=== PATIENT | female | born 1990 | race Caucasian/White ===

== ENCOUNTER 2023-10-02 08:43 | Emergency (ER) | payer MEDICARE, OTHER, SELFPAY ==
[2023-10-02] VITALS (10 sets, daily range): BP systolic 89–146; BP diastolic 65–119; BMI 34.1
--- NOTE | 2023-10-02 09:02 | ED.GENMED ---
History of Present Illness
General
Chief Complaint: Breathing Problem
Source: records
Exam Limitations: clinical condition
Time Seen by Provider: 10/02/23 08:49
Travel History
Have you had any contact with someone who has COVID-19?: No
Do you have any symptoms of coronavirus? Fever > 100 degrees, chills, cough, shortness of breath, sore throat, loss of taste or smell, muscle aches, or headache?: Yes
Symptoms:: SOB
History of Present Illness
History of Present Illness:
Patient apparently was sent for blood pressure issues. Unsure whether this was hyper or hypotension. Low pulse oxes and some dizziness and paleness. Uncertain time course or etiology. Patient only complains of bilateral foot pain. This has been
going on. Denies shortness of breath cough fever.
Past History
Past History
ED Past Medical History: HTN, IDDM, Seizures, Hypothyroidism, Psychiatric (Bipolar, Anxiety, Depression) and Other (DVT, hydrocephalus, Neuralgia, Post Traumatic seizure, C-diff, brain tumor, diabetes insipidus)
ED Past Surgical History: Other (Craniotomy, [employer] shunt)
Social History
Tobacco: Non-smoker
Alcohol: None
Personal: Single
Living: other (nursing home)
Employment: Disabled
Family History
Family History: Unable to obtain
Review of Systems
Review of Systems
All Other Systems: Not applicable
Constitutional: Denies fever
Cardiac: Reports no symptoms
ABD/GI: Reports no symptoms
Phy Exam
Physical Exam
Physical Exam:
GENERAL: Alert and oriented. Delayed. At times she is mildly sleepy and lethargic but will fully awaken and answer questions appropriately.
EYE: Orbits normal.
NECK: Supple, no significant adenopathy.
ENT: Pharynx without erythema
CARDIAC: Regular rate and rhythm without any obvious murmurs.
LUNGS: Clear breath sounds,normal
ABDOMEN: Soft, without focal tenderness or distention
NEUROLOGICAL: Alert and oriented , grossly non-focal. Delayed
SKIN: Warm and dry, no rash or lesion, no discoloration, skin intact.
MUSCULOSKELETAL: No edema,no deformity.Good color
PSYCH: Normal and appropriate interaction.
Course
Orders/Labs/Results
Orders:
Orders
10/02/23 09:00
CT Head W/o Iv Contrast Urgent
Comment:
Reason For Exam: change in ms
Cardiac Monitoring- Treatment ONCE
IV Insert/Care/Rem.- Treatment PRN
Pulse Ox/cont/shift [RESP] Stat
Quantity: 1
10/02/23 09:01
Electrocardiogram (*1) Stat
Reason for Study: Other
Other Reason for Exam: pneumonia
EKG- Treatment ONCE
CR Chest - 2 Views Urgent
Comment:
Reason For Exam: hypoxia
10/02/23 09:04
COVID-19 Antigen Urgent
Source: Nasal Swab
Complete Blood Count/With Diff Urgent
Influenza A+B Rapid Molecular Urgent
ALIDA Source: Nasal Swab
Specimen Description:
10/02/23 09:57
Comprehensive Metabolic Panel Routine
10/02/23 10:01
Straight cath- Treatment ONCE
10/02/23 10:18
Urinalysis Reflex To Culture Urgent
Date Specimen was Collected: 10/02/23
Time Specimen was Collected: 10:17
Urine Microscopic Reflex Cult Urgent
Urine Culture Urgent
ALIDA Source: U
Specimen Description:
Date Specimen was Collected: 10/02/23
Time Specimen was Collected: 10:17
10/02/23 12:44
CefTRIAXone [Rocephin] 1,000 mg IV NOW STA
Abnormal Lab Results
10/02/23 10/02/23 10/02/23
09:04 09:57 10:18
RBC 3.02 L 10^6/uL
(4.20-5.40)
Hgb 9.2 L g/dL
(12.0-16.0)
Hct 29.7 L %
(37.0-47.0)
MCHC 31.0 L g/dL
(33.0-37.0)
RDW 18.5 H %
(11.5-14.5)
Abs Immat Gran (auto) 0.1 H 10^3/uL
(0-0.05)
Absolute Neuts (auto) 7.2 H 10^3/uL
(1.4-6.5)
Absolute Monos (auto) 0.7 H 10^3/uL
(0.1-0.6)
Absolute Eos (auto) 0.8 H 10^3/uL
(0-0.7)
Immature Gran % 0.7 H %
(0-0.5)
Lymphocytes % 13.3 L %
(20.5-51.1)
Eosinophils % 7.5 H %
(0-6)
Sodium 148 H mmol/L
(135-145)
Chloride 113 H mmol/L
(98-107)
BUN 18 H mg/dl
(7-17)
Creatinine 1.3 H mg/dL
(0.6-1.0)
Glucose 111 H mg/dl
(70-99)
AST 12 L U/L
(14-36)
Ur Occult Blood Reflex 4+ A
(Negative)
Urine Nitrite (Reflex) Positive A
(Negative)
Leukocyte Esterase Rfl 2+ A
(Negative)
Urine RBC 7-10 A /HPF
(0-2)
Urine WBC (Reflex) 60-70 A /HPF
(0-5)
Urine Bacteria (Reflex) Many A
(Negative)
Urine Albumin (Reflex) 1+ A
(Neg - Trace)
10/02/23 09:04
10/02/23 09:57
Vital Signs
Initial and Last Documented VS:
Initial Vital Signs
Pulse Resp BP Pulse Ox
89 15 91/72 94
10/02/23 08:47 10/02/23 08:47 10/02/23 08:47 10/02/23 08:47
Last Documented Vital Signs
Temp Pulse Resp BP Pulse Ox
98.9 F 62 20 101/68 95
10/02/23 08:48 10/02/23 11:45 10/02/23 11:45 10/02/23 11:00 10/02/23 11:45
*Radiology
Radiology exam reviewed: radiology read reviewed (No acute findings on head CT. Chest x-ray negative)
*Pulse Oximetry
Patient hypoxic: no
*EKG
Interpreted by ED Provider?: Yes
Interpretation: abnormal
Comparison EKG: changes noted
Heart Rate: 78
Rate: normal
Rhythm: sinus
[place]: left axis deviation
Interval: normal interval
QRS Pattern: right bundle branch block
Ischemia: non-specific ST changes
*[employer] Interpretation
Rate: normal
Interpretation: normal
Heart Rate: 80
Rhythm: sinus
*Critical Care Note
Total Time (30-74mins, 75-104mins- exclusive of procedures): Not Applicable
Data Reviewed
Review of Other/Old Records Reveals: Labs, Records and Radiology Studies
Update Note
Update Note:
919... Discussed with patient's nurse at the facility. They noticed a difference this morning. Seemed pale a little sleepier than normal and weaker than normal. Hypoxic at times. Only complaining of bilateral leg pain which she apparently does
intermittently. No new medications.
Patient is remained stable and nontoxic........1350.... No distress. Watching a movie. Pulse ox remained stable. Positive UTI. Can be treated as an outpatient. Discharged to follow-up
ED Attending Note
-
Portions of this chart may have been created with voice recognition software.� Occasional wrong word or��sound alike� substitutions may have occurred due to the inherent limitations of voice recognition software.
Discharge Plan
Departure
Patient Disposition: Home (Routine Discharge)
Date of Disposition: 10/02/23
Time of Disposition: 13:51
Patient with high blood pressure during this ER visit?: No
Discharge Problem:
UTI, Weakness
Instructions: Urinary tract infections in adults, Generalized Weakness (DC)
Prescriptions:
New
cefdinir 300 mg capsule
300 mg PO BID 14 Days Qty: 14 0RF
No Action
levetiracetam 500 MG tablet
1,000 mg PO BID@0800,2000
prednisone 5 MG tablet
5 mg PO DAILY
gabapentin 300 MG capsule
300 mg PO TID@0800,1300,1999
oxybutynin chloride 5 MG tablet
5 mg PO BID@0800,1999
cholecalciferol (vitamin D3) 1,000 UNITS tablet
1,000 units PO DAILY
magnesium oxide 400 MG capsule
400 mg PO QID
riboflavin (vitamin B2) 400 MG tablet
400 mg PO DAILY
acetaminophen 325 MG tablet
650 mg PO Q4HPRN PRN (Reason: mild pain,fever)
loperamide 2 MG capsule
2 mg PO DAILY PRN (Reason: diarrhea )
metformin 500 mg tablet
1,000 mg PO BID@0800,1700
atorvastatin 20 mg tablet
20 mg PO HS
trazodone 50 mg tablet
50 mg PO HS
miconazole nitrate 2 % Cream
1 applic TOPICAL DAILY
famotidine 40 mg Tablet
40 mg PO HS
Metamucil Packet
1 packet PO DAILY PRN (Reason: constipation )
desmopressin 0.2 mg tablet
0.2 mg PO BID
sertraline 100 mg tablet
100 mg PO DAILY
midodrine 5 mg tablet
5 mg PO TID@0800,1300,1700 MDD hold if BP>135/70
cyanocobalamin (vitamin B-12) [Vitamin B-12] 1,000 mcg tablet
1,000 mcg PO DAILY
bacitracin 500 unit/gram ointment
1 applic TOPICAL BID
levothyroxine 100 mcg tablet
100 mcg PO DAILY@0700
tamsulosin 0.4 mg capsule
0.4 mg PO QPM
docusate sodium 100 mg Capsule
100 mg PO Q12H PRN (Reason: constipation )
folic acid 1 mg tablet
1 mg PO DAILY
nystatin [Nyamyc] 100,000 unit/gram powder
1 applic TOPICAL TID PRN (Reason: affected areas as needed for rash )
ondansetron 4 mg tablet,disintegrating
4 mg PO Q8H PRN (Reason: nausea/vomiting )
risperidone 1 mg tablet
1 mg PO HS
trolamine salicylate [Aspercreme] 10 % Cream
1 applic TOPICAL BID
buspirone 15 mg tablet
7.5 mg PO BID@0800,1999
zinc oxide Ointment
1 applic TOPICAL TID@0800,1200,1700
ferrous gluconate 324 mg (38 mg iron) tablet
324 mg PO BID@0800,1700
omega 3-umm-knu-fish oil [Fish Oil] 1,000 mg (120 mg-180 mg) Capsule
1 cap PO TID@0800,1300,1999
Azo Cranberry Plus Probiotic 250-30-15 mg Tablet
1 tab PO DAILY
Coppertone
1 applic topical PRN PRN (Reason: sunscreen )
lorazepam 0.5 MG tablet
0.5 mg PO Q8HPRN PRN (Reason: anxiety)
dextromethorphan-guaifenesin [Guaifenesin-DM] 10-100 mg/5 mL Liquid
10 ml PO Q4H PRN (Reason: cough)
Referrals:
UNKNOWN,NO INTERVIEW [Family Provider] -
Activity Restrictions/Additional Instructions:
Start the oral antibiotics tomorrow
Follow-up closely with her primary physician in 1 to 2 days
Interventions
Interventions:
*Risk Screen - Suicide Last Done: 10/02/23 08:48
*General Assessment Last Done: 10/02/23 08:48
*Neglect/Abuse Screening Last Done: 10/02/23 08:48
*ED COVID-19 Vaccine History Last Done: 10/02/23 09:00
ED- Cardiac Assessment Last Done: 10/02/23 09:22
ED- Pulmonary Assessment Last Done: 10/02/23 09:22
[2023-10-02 09:34] LABS: % Basophils 0.7 % (0-2); % Eosinophils 7.5 % (0-6); % Immature Granulocytes 0.7 % (0-0.5); % Lymphocytes 13.3 % (20.5-51.1); % Monocytes 7.1 % (1.7-9.3); % Neutrophils 70.7 % (42.2-75.2); Absolute Basophils 0.1 10^3/uL (0-0.2); Absolute Eosinophils 0.8 10^3/uL (0-0.7); Absolute Immature Granulocytes 0.1 10^3/uL (0-0.05); Absolute Lymphocytes 1.4 10^3/uL (1.2-3.4); Absolute Monocytes 0.7 10^3/uL (0.1-0.6); Absolute Neutrophils 7.2 10^3/uL (1.4-6.5); Hematocrit 29.7 % (37.0-47.0); Hemoglobin 9.2 g/dL (12.0-16.0); Mean Corpuscular Hgb 30.5 pg (27.0-31.0); Mean Corpuscular Volume 98.3 fL (81.0-99.0); Nucleated Red Blood Cells % 0 %; Red Blood Cell Count 3.02 10^6/uL (4.20-5.40); Red Cell Dist. Width 18.5 % (11.5-14.5); White Blood Cell Count 10.2 10^3/uL (4.8-10.8)
[2023-10-02 09:56] LABS: COVID-19 Antigen Negative (Negative)
[2023-10-02 10:22] LABS: ALT (SGPT) 13 U/L (0-35); AST (SGOT) 12 U/L (14-36); Albumin 3.7 g/dl (3.5-5.0); Alkaline Phosphatase 58 U/L (38-126); Blood Urea Nitrogen 18 mg/dl (7-17); Calcium 8.8 mg/dl (8.4-10.2); Carbon Dioxide 29 mmol/L (22-30); Chloride 113 mmol/L (98-107); Estimated Creatinine Clearance 73 ml/min; Glucose 111 mg/dl (70-99); Potassium 4.1 mmol/L (3.5-5.1); Sodium 148 mmol/L (135-145); Total Bilirubin 0.7 mg/dl (0.2-1.3); Total Protein 6.9 g/dl (6.3-8.2); eGFR 56.38
[2023-10-02 10:25] LABS: Urine Albumin 1+ (Neg - Trace); Urine Bilirubin Negative (Negative); Urine Character Clear (Clear); Urine Color Yellow; Urine Glucose Negative (Negative); Urine Ketone Negative (Negative); Urine Leukocyte 2+ (Negative); Urine Nitrite Positive (Negative); Urine Occult Blood 4+ (Negative); Urine Urobilinogen Negative (Neg - 1+)
[2023-10-02 10:48] LABS: Urine Mucus Few
[2023-10-02 10:49] LABS: Urine Amorphous Seen; Urine Squamous Cell 0-2 /LPF (Few)
[2023-10-02 10:50] LABS: Urine Bacteria Many (Negative); Urine White Cell 60-70 /HPF (0-5)
[2023-10-02] MEDS: ROCEPHIN 1000 MG IV (13:10)
== END 2023-10-02 16:15 | disposition home or self-care (01) ==
LOC: EMR 08:43
PROVIDERS: EMERGENCY PHYSICIAN Emergency Medicine
DX: N39.0 Urinary tract infection, site not specified (principal); R53.1 Weakness; M79.605 Pain in left leg; M79.604 Pain in right leg; Z11.52 Encounter for screening for COVID-19
CPT/HCPCS: 99285; 96374; 51701; 70450; 71046; 80053; 81003; 81015; 85025; 87086; 87502; 87811; 93005

== ENCOUNTER 2024-08-21 22:13 | Inpatient (IN) | payer MEDICARE, OTHER, SELFPAY ==
[2024-08-21] VITALS (11 sets, daily range): BP systolic 97–117; BP diastolic 63–72; BMI 36.5
[2024-08-21 12:54] LABS: % Basophils 0.5 % (0-2); % Eosinophils 0.3 % (0-6); % Immature Granulocytes 1.1 % (0-0.5); % Lymphocytes 10.5 % (20.5-51.1); % Monocytes 8.6 % (1.7-9.3); Absolute Immature Granulocytes 0.1 10^3/uL (0-0.05); Absolute Lymphocytes 0.7 10^3/uL (1.2-3.4); Absolute Monocytes 0.6 10^3/uL (0.1-0.6); Absolute Neutrophils 5.3 10^3/uL (1.4-6.5); Hematocrit 33.1 % (37.0-47.0); Hemoglobin 10.1 g/dL (12.0-16.0); Mean Corp Hgb Conc. 30.5 g/dL (33.0-37.0); Mean Corpuscular Hgb 31.1 pg (27.0-31.0); Mean Corpuscular Volume 101.8 fL (81.0-99.0); Mean Platelet Volume 10.3 fL (7.4-10.4); Nucleated Red Blood Cells % 0 %; Platelet Count 238 10^3/uL (130-400); Red Blood Cell Count 3.25 10^6/uL (4.20-5.40); Red Cell Dist. Width 16.8 % (11.5-14.5); White Blood Cell Count 6.6 10^3/uL (4.8-10.8)
[2024-08-21 13:05] LABS: HCG, Serum Qualitative Screen Negative
[2024-08-21 13:09] LABS: ALT (SGPT) 18 U/L (0-35); AST (SGOT) 20 U/L (14-36); Albumin 4.5 g/dl (3.5-5.0); Alkaline Phosphatase 63 U/L (38-126); Blood Urea Nitrogen 26 mg/dl (7-17); Calcium 9.4 mg/dl (8.4-10.2); Carbon Dioxide 22 mmol/L (22-30); Chloride 111 mmol/L (98-107); Glucose 123 mg/dl (70-99); Potassium 4.8 mmol/L (3.5-5.1); Sodium 150 mmol/L (135-145); Total Bilirubin 0.6 mg/dl (0.2-1.3); Total Protein 7.9 g/dl (6.3-8.2); eGFR 43.67
[2024-08-21 13:20] LABS: Troponin I < 0.012 ng/ml
--- NOTE | 2024-08-21 14:39 | ED.GENMED ---
History of Present Illness
<SHAYLA Thornton - Last Filed: 08/22/24 10:47>
General
Chief Complaint: Chest Pain
Exam Limitations: none
Time Seen by Provider: 08/21/24 14:12
Nursing documentation reviewed up to this point in time: agreed with
History of Present Illness
History of Present Illness:
33 yr old [facility] presents to the ED for chest pain. Patient has documented history of hydrocephalus brain tumor, bipolar anxiety craniotomy recent kidney stone with stent.
Pt as per staff at [facility] sent for evaluation of chest pain.
Staff also reports pt is more tired then normal.
Staff reports pt recently hospitalized at [facility](for what she believes was kidney stones with) and from [place] was sent to rehab and came back to residential facility the beginning of August.
Transfer paperwork does mention ureter calculus.
Staff reports pt has b/l stents that need to be replaced.
Nurse reports pt is scheduled to see [facility] urology for b/l stent exchange 2/3.Pt is also a patient of [facility] in [place], [place]/
Past History
<SHAYLA Thornton - Last Filed: 08/22/24 10:47>
Past History
ED Past Medical History: HTN, IDDM, Seizures, Hypothyroidism, Psychiatric (Bipolar, Anxiety, Depression) and Other (DVT, hydrocephalus, Neuralgia, Post Traumatic seizure, C-diff, brain tumor, diabetes insipidus)
ED Past Surgical History: Other (Craniotomy, RETAIL EVENT COORDINATOR shunt)
Social History
Tobacco: Non-smoker
Alcohol: None
Personal: Single
Living: other (jail)
Employment: Disabled
Family History
Family History: Unable to obtain
Review of Systems
<SHAYLA Thornton - Last Filed: 08/22/24 10:47>
Review of Systems
Allergies reviewed?: Yes
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
Constitutional: Reports other (pt more tired than normal )
EENT: Reports no symptoms
Respiratory: Reports no symptoms
Cardiac: Reports chest pain (pt had complained of cp for staff at residential facilty denies now )
ABD/GI: Reports no symptoms
: Reports no symptoms
Musculoskeletal: Reports no symptoms
Skin: Reports no symptoms
Neurological: Reports other (more tired than nml )
Psychiatric: Reports no symptoms
Phy Exam
<SHAYLA Thornton - Last Filed: 08/22/24 10:47>
General Physical Exam
General Presentation: no apparent distress
General age: appears older than age
General Skin: warm and dry
General Habitus: normal
General Mental: other (appears sleepy however will open eyes and answer questions )
General Hydration: dry mucous membranes
Cardiovascular Exam
Cardiovascular Exam: regular rate/rhythm, no murmur and normal peripheral pulses
Pulmonary Exam
Pulmonary Exam: lungs clear and no respiratory distress
Neurological Exam
Neurological Exam: other (pt is able to state name, attempts to follow commands )
Musculoskeletal Exam
Musculoskeletal Exam: full ROM and other (+ area of erythema to right calf region )
Skin Exam
Skin Exam: normal color and warm/dry
Psychiatric Exam
Psychiatric Exam: normal mood/affect
Scores
<SHAYLA Thornton - Last Filed: 08/22/24 10:47>
Heart Score for Chest Pain Patients
STEMI patient?: Not applicable
Course
<SHAYLA Thornton - Last Filed: 08/22/24 10:47>
Orders/Labs/Results
Orders:
Orders
08/21/24 Breakfast
Regular
At Your Request: Limited Participation
08/21/24 12:09
ECG [Electrocardiogram (*1)] Urgent
Reason for Study: Chest Pain
EKG- Treatment ONCE
08/21/24 12:18
Test Result ONCE
08/21/24 12:41
Complete Blood Count/With Diff Urgent
Comprehensive Metabolic Panel Urgent
HCG, Serum Qualitative Screen Urgent
Troponin I Urgent
08/21/24 16:10
Chest [CR Chest - 2 Views ] Urgent
Comment:
Reason For Exam: cp
08/21/24 16:17
Straight cath- Treatment ONCE
08/21/24 16:35
0.9% Sodium Chloride 1000 ml [Nss] 1,000 ml IV BOLUS
08/21/24 16:46
UA Reflex to Culture [Urinalysis Reflex To Culture] Urgent
Date Specimen was Collected: 08/21/24
Time Specimen was Collected: 16:38
Urine Microscopic Reflex Cult Urgent
Urine Culture Urgent
ALIDA Source: U
Specimen Description:
Date Specimen was Collected: 08/21/24
Time Specimen was Collected: 16:38
08/21/24 16:48
Troponin I Urgent
08/21/24 16:51
CT Head W/o Iv Contrast Urgent
Comment:
Reason For Exam: change in ms
08/21/24 17:47
CefTRIAXone [Rocephin] 1,000 mg IV NOW STA
08/21/24 17:50
CT Abd/pel Without Iv Or Oral Urgent
Comment:
Reason For Exam: UTI w/ known stents
08/21/24 17:52
Sterile Water [Sterile Water For Injection] 10 ml IV NOW STA
08/21/24 17:55
Flush (0.9% Sodium Chloride) [Flush (Nss)] See Dose Instructions IV BID@1755,1805
08/21/24 18:00
Lactated Ringers [Lr] 1,000 ml IV 1,000 mls/hr
08/21/24 18:09
Venous Blood Gas Urgent
%Oxygen/Room Air: 21
08/21/24 18:11
Lactic Acid Q4H
Comment: CANCEL 2nd LACTIC ACID IF 1st LACTIC ACID IS LESS THAN 2
08/21/24 18:12
Blood Culture Q30M
ALIDA Source: Blood/Venous
Specimen Description:
Blood Culture Q30M
ALIDA Source: Blood/Venous
Specimen Description:
08/21/24 18:58
0.9% Sodium Chloride 1000 ml [Nss] 1,000 ml IV BOLUS
08/21/24 21:01
Admit/Transfer Patient As Directed
Co-Sign Provider:
Level of Care: Inpatient admission
Assign to:: Telemetry
Physician / Group: Nakul
Diagnosis: Acute TME, Dehydration
Reason for Telemetry: Arrhythmia
Date to Stop Telemetry: 08/24/24
Time to Stop Telemetry: 11:00
Reason for Hospitalization: Acute TME, Dehydration
Expected length of stay greater than two midnights?: Yes
ELOS- Estimated Length of Stay in days: 3
I certify the patient meets the requirements for IP care: Yes
PRN Pain Medication Management As Directed
May give lesser potent ordered pain med per pt: Yes
preference::
Protocol:: Medication orders for pain may be administered in a
manner that supports deferring to patient preference
when the pt is:
- Requesting an ordered lesser potent pain medication.
Least to most potent pain medications are defined
as: acetaminophen < NSAID < tramadol < opioids
(morphine, oxycodone, hydromorphone).
- Requesting a lesser dose of the same medication IF
ORDERED.
- Requesting a less intrusive route of administration
if both routes are prescribed by the provider (PO <
IV).
08/21/24 21:06
Code Status As Directed
Resuscitation Status: Full Code
08/21/24 21:08
COVID-19 Antigen Urgent
Source: Nasal Swab
Influenza A+B Rapid Molecular Urgent
ALIDA Source: Nasal Swab
Specimen Description:
08/21/24 22:00
Flush (0.9% Sodium Chloride) [Flush (Nss)] See Dose Instructions IV PER PROTOCOL
08/21/24 22:15
Lactic Acid Q4H
Comment: CANCEL 2nd LACTIC ACID IF 1st LACTIC ACID IS LESS THAN 2
08/21/24 22:44
Troponin I Q6H
0.45% Sodium Chloride 1000 ml [0.45%NaCl] 1,000 ml IV 125 mls/hr
Acetaminophen [Tylenol] 650 mg PO Q4HPRN PRN
Atorvastatin [Lipitor] 20 mg PO HS
Dextrose 50%-Water [Dextrose 50% Syringe] 12.5 grams IV [id number] PRN
Famotidine [Pepcid] 40 mg PO HS
Glucagon [GlucaGen] 1 mg IM PRN PRN
Risperidone [Risperdal] 0.5 mg PO HS
Trazodone [Desyrel] 50 mg PO HS
08/21/24 22:44
Neurosurgery Consult Routine
Consulting Provider: Karma Mercer
Was physician already notified: Yes
Reason for Consult: Intracranial collections, RETAIL EVENT COORDINATOR shunt, hydrocephalus, acute TME
UROLOGY CONSULT Routine
Consulting Provider: Yuri Mccall
Was physician already notified: Yes
Comment: b/l ureteral stents, possible UTI
B12 [Vitamin B12] Routine
Folate Routine
TSH Reflex To Free T4 Routine
Activity As Directed
Activity Level: Ambulate
With Assistance
Bedside Glucose Monitoring As Directed
Frequency: AC&HS
Additional Instructions:: Change to q6h if pt on TPN, tube feeding or not eating
EKG with chest pain [ECG as needed] As Directed
ECG as needed for:: Chest Pain
I/O [Intake/ Output] As Directed
Frequency: Per unit guidelines
Neurological Checks As Directed
Frequency: q4h
Pneumatic Compression Sleeves As Directed
Type: Knee high
Precautions As Directed
Type of Precautions: Seizure
Aspiration
Vital Signs As Directed
Frequency: Per unit guidelines
Weight As Directed
Frequency: Daily
Oxygen Therapy [O2 Therapy] [RESP] Routine
Titrate/Wean O2 to maintain O2 sat greater than (%): 94
Ot Eval And Treat Routine
PT Consult [Pt Eval And Treat] Routine
Activity Level: Ambulate
With Assistance
Speech Therapy Eval & Treat Routine
DX Deep Vein Thrombosis Video Routine
08/22/24 06:11
Basic Metabolic Panel IN AM
Complete Blood Count/No Diff IN AM
Glycohemoglobin (HgbA1c) IN AM
Magnesium IN AM
Phosphorus IN AM
Troponin I Q6H
08/22/24 07:00
Levothyroxine [Synthroid] 100 mcg PO DAILY@0700
08/22/24 07:30
Insulin Aspart Corrective Low [Novolog Flexpen-Low Resistance] See Protocol SC AC
08/22/24 08:00
Desmopressin [Ddavp] 0.1 mg PO BID
FOLic ACID [Folvite] 1 mg PO DAILY
Gabapentin [Neurontin] 300 mg PO TID@0800,1300,2000
Levetiracetam [Keppra] 1,000 mg PO BID
Midodrine [ProAmatine] 10 mg PO TID@0800,1300,1700
Prednisone [Deltasone] 5 mg PO DAILY
Sertraline HCl [Zoloft] 100 mg PO DAILY
08/22/24 18:00
CefTRIAXone [Rocephin] 1,000 mg IV Q24H
08/24/24 11:00
DC Protocol for Telemetry ONCE
Abnormal Lab Results
08/21/24 08/21/24 08/21/24
12:41 16:46 18:09
RBC 3.25 L 10^6/uL
(4.20-5.40)
Hgb 10.1 L g/dL
(12.0-16.0)
Hct 33.1 L %
(37.0-47.0)
MCV 101.8 H fL
(81.0-99.0)
MCH 31.1 H pg
(27.0-31.0)
MCHC 30.5 L g/dL
(33.0-37.0)
RDW 16.8 H %
(11.5-14.5)
Abs Immat Gran (auto) 0.1 H 10^3/uL
(0-0.05)
Absolute Lymphs (auto) 0.7 L 10^3/uL
(1.2-3.4)
Immature Gran % 1.1 H %
(0-0.5)
Neutrophils % 79.0 H %
(42.2-75.2)
Lymphocytes % 10.5 L %
(20.5-51.1)
VBG pO2 64 H mmHg
(30-50)
VBG HCO3 27.2 H mmol/L
(22-27)
Sodium 150 H mmol/L
(135-145)
Chloride 111 H mmol/L
(98-107)
BUN 26 H mg/dl
(7-17)
Creatinine 1.6 H mg/dL
(0.6-1.0)
Glucose 123 H mg/dl
(70-99)
Lactic Acid
Urine Ketones Trace A
(Negative)
Ur Occult Blood Reflex 4+ A
(Negative)
Urine Nitrite (Reflex) Positive A
(Negative)
Leukocyte Esterase Rfl 2+ A
(Negative)
Urine RBC 30-40 A /HPF
(0-2)
Urine WBC (Reflex) 80-90 A /HPF
(0-5)
Urine Bacteria (Reflex) Many A
(Negative)
Urine Albumin (Reflex) 3+ A
(Neg - Trace)
08/21/24
18:11
RBC
Hgb
Hct
MCV
MCH
MCHC
RDW
Abs Immat Gran (auto)
Absolute Lymphs (auto)
Immature Gran %
Neutrophils %
Lymphocytes %
VBG pO2
VBG HCO3
Sodium
Chloride
BUN
Creatinine
Glucose
Lactic Acid 2.5 H mmol/L
(0.7-2.0)
Urine Ketones
Ur Occult Blood Reflex
Urine Nitrite (Reflex)
Leukocyte Esterase Rfl
Urine RBC
Urine WBC (Reflex)
Urine Bacteria (Reflex)
Urine Albumin (Reflex)
08/21/24 12:41
08/21/24 12:41
Vital Signs
Initial and Last Documented VS:
Initial Vital Signs
Temp Pulse Resp BP Pulse Ox
98.2 F 100 16 100/68 98
08/21/24 12:15 08/21/24 12:15 08/21/24 12:15 08/21/24 12:15 08/21/24 12:15
Last Documented Vital Signs
Temp Pulse Resp BP Pulse Ox
97.7 F 68 18 118/76 97
08/22/24 07:05 08/22/24 07:05 08/22/24 07:05 08/22/24 07:05 08/22/24 07:05
Practice Performance Manager consulted with Physician
Practice Performance Manager consulted with physician?: Yes
Name of Physician Consulted: Alfonso
<Abhishek Coppola, DO - Last Filed: 08/21/24 20:28>
Orders/Labs/Results
Orders:
Orders
08/21/24 Breakfast
Regular
At Your Request: Limited Participation
08/21/24 12:09
ECG [Electrocardiogram (*1)] Urgent
Reason for Study: Chest Pain
EKG- Treatment ONCE
08/21/24 12:18
Test Result ONCE
08/21/24 12:41
Complete Blood Count/With Diff Urgent
Comprehensive Metabolic Panel Urgent
HCG, Serum Qualitative Screen Urgent
Troponin I Urgent
08/21/24 16:10
Chest [CR Chest - 2 Views ] Urgent
Comment:
Reason For Exam: cp
08/21/24 16:17
Straight cath- Treatment ONCE
08/21/24 16:35
0.9% Sodium Chloride 1000 ml [Nss] 1,000 ml IV BOLUS
08/21/24 16:46
UA Reflex to Culture [Urinalysis Reflex To Culture] Urgent
Date Specimen was Collected: 08/21/24
Time Specimen was Collected: 16:38
Urine Microscopic Reflex Cult Urgent
Urine Culture Urgent
ALIDA Source: U
Specimen Description:
Date Specimen was Collected: 08/21/24
Time Specimen was Collected: 16:38
08/21/24 16:48
Troponin I Urgent
08/21/24 16:51
CT Head W/o Iv Contrast Urgent
Comment:
Reason For Exam: change in ms
08/21/24 17:47
CefTRIAXone [Rocephin] 1,000 mg IV NOW STA
08/21/24 17:50
CT Abd/pel Without Iv Or Oral Urgent
Comment:
Reason For Exam: UTI w/ known stents
08/21/24 17:52
Sterile Water [Sterile Water For Injection] 10 ml IV NOW STA
08/21/24 17:55
Flush (0.9% Sodium Chloride) [Flush (Nss)] See Dose Instructions IV BID@1755,1805
08/21/24 18:00
Lactated Ringers [Lr] 1,000 ml IV 1,000 mls/hr
08/21/24 18:09
Venous Blood Gas Urgent
%Oxygen/Room Air: 21
08/21/24 18:11
Lactic Acid Q4H
Comment: CANCEL 2nd LACTIC ACID IF 1st LACTIC ACID IS LESS THAN 2
08/21/24 18:12
Blood Culture Q30M
ALIDA Source: Blood/Venous
Specimen Description:
Blood Culture Q30M
ALIDA Source: Blood/Venous
Specimen Description:
08/21/24 18:58
0.9% Sodium Chloride 1000 ml [Nss] 1,000 ml IV BOLUS
08/21/24 21:01
Admit/Transfer Patient As Directed
Co-Sign Provider:
Level of Care: Inpatient admission
Assign to:: Telemetry
Physician / Group: Nakul
Diagnosis: Acute TME, Dehydration
Reason for Telemetry: Arrhythmia
Date to Stop Telemetry: 08/24/24
Time to Stop Telemetry: 11:00
Reason for Hospitalization: Acute TME, Dehydration
Expected length of stay greater than two midnights?: Yes
ELOS- Estimated Length of Stay in days: 3
I certify the patient meets the requirements for IP care: Yes
PRN Pain Medication Management As Directed
May give lesser potent ordered pain med per pt: Yes
preference::
Protocol:: Medication orders for pain may be administered in a
manner that supports deferring to patient preference
when the pt is:
- Requesting an ordered lesser potent pain medication.
Least to most potent pain medications are defined
as: acetaminophen < NSAID < tramadol < opioids
(morphine, oxycodone, hydromorphone).
- Requesting a lesser dose of the same medication IF
ORDERED.
- Requesting a less intrusive route of administration
if both routes are prescribed by the provider (PO <
IV).
08/21/24 21:06
Code Status As Directed
Resuscitation Status: Full Code
08/21/24 21:08
COVID-19 Antigen Urgent
Source: Nasal Swab
Influenza A+B Rapid Molecular Urgent
ALIDA Source: Nasal Swab
Specimen Description:
08/21/24 22:00
Flush (0.9% Sodium Chloride) [Flush (Nss)] See Dose Instructions IV PER PROTOCOL
08/21/24 22:15
Lactic Acid Q4H
Comment: CANCEL 2nd LACTIC ACID IF 1st LACTIC ACID IS LESS THAN 2
08/21/24 22:44
Troponin I Q6H
0.45% Sodium Chloride 1000 ml [0.45%NaCl] 1,000 ml IV 125 mls/hr
Acetaminophen [Tylenol] 650 mg PO Q4HPRN PRN
Atorvastatin [Lipitor] 20 mg PO HS
Dextrose 50%-Water [Dextrose 50% Syringe] 12.5 grams IV [id number] PRN
Famotidine [Pepcid] 40 mg PO HS
Glucagon [GlucaGen] 1 mg IM PRN PRN
Risperidone [Risperdal] 0.5 mg PO HS
Trazodone [Desyrel] 50 mg PO HS
08/21/24 22:44
Neurosurgery Consult Routine
Consulting Provider: Karma Mercer
Was physician already notified: Yes
Reason for Consult: Intracranial collections, RETAIL EVENT COORDINATOR shunt, hydrocephalus, acute TME
UROLOGY CONSULT Routine
Consulting Provider: Yuri Mccall
Was physician already notified: Yes
Comment: b/l ureteral stents, possible UTI
B12 [Vitamin B12] Routine
Folate Routine
TSH Reflex To Free T4 Routine
Activity As Directed
Activity Level: Ambulate
With Assistance
Bedside Glucose Monitoring As Directed
Frequency: AC&HS
Additional Instructions:: Change to q6h if pt on TPN, tube feeding or not eating
EKG with chest pain [ECG as needed] As Directed
ECG as needed for:: Chest Pain
I/O [Intake/ Output] As Directed
Frequency: Per unit guidelines
Neurological Checks As Directed
Frequency: q4h
Pneumatic Compression Sleeves As Directed
Type: Knee high
Precautions As Directed
Type of Precautions: Seizure
Aspiration
Vital Signs As Directed
Frequency: Per unit guidelines
Weight As Directed
Frequency: Daily
Oxygen Therapy [O2 Therapy] [RESP] Routine
Titrate/Wean O2 to maintain O2 sat greater than (%): 94
Ot Eval And Treat Routine
PT Consult [Pt Eval And Treat] Routine
Activity Level: Ambulate
With Assistance
Speech Therapy Eval & Treat Routine
DX Deep Vein Thrombosis Video Routine
08/22/24 06:11
Basic Metabolic Panel IN AM
Complete Blood Count/No Diff IN AM
Glycohemoglobin (HgbA1c) IN AM
Magnesium IN AM
Phosphorus IN AM
Troponin I Q6H
08/22/24 07:00
Levothyroxine [Synthroid] 100 mcg PO DAILY@0700
08/22/24 07:30
Insulin Aspart Corrective Low [Novolog Flexpen-Low Resistance] See Protocol SC AC
08/22/24 08:00
Desmopressin [Ddavp] 0.1 mg PO BID
FOLic ACID [Folvite] 1 mg PO DAILY
Gabapentin [Neurontin] 300 mg PO TID@0800,1300,2000
Levetiracetam [Keppra] 1,000 mg PO BID
Midodrine [ProAmatine] 10 mg PO TID@0800,1300,1700
Prednisone [Deltasone] 5 mg PO DAILY
Sertraline HCl [Zoloft] 100 mg PO DAILY
08/22/24 18:00
CefTRIAXone [Rocephin] 1,000 mg IV Q24H
08/24/24 11:00
DC Protocol for Telemetry ONCE
Abnormal Lab Results
08/21/24 08/21/24 08/21/24
12:41 16:46 18:09
RBC 3.25 L 10^6/uL
(4.20-5.40)
Hgb 10.1 L g/dL
(12.0-16.0)
Hct 33.1 L %
(37.0-47.0)
MCV 101.8 H fL
(81.0-99.0)
MCH 31.1 H pg
(27.0-31.0)
MCHC 30.5 L g/dL
(33.0-37.0)
RDW 16.8 H %
(11.5-14.5)
Abs Immat Gran (auto) 0.1 H 10^3/uL
(0-0.05)
Absolute Lymphs (auto) 0.7 L 10^3/uL
(1.2-3.4)
Immature Gran % 1.1 H %
(0-0.5)
Neutrophils % 79.0 H %
(42.2-75.2)
Lymphocytes % 10.5 L %
(20.5-51.1)
VBG pO2 64 H mmHg
(30-50)
VBG HCO3 27.2 H mmol/L
(22-27)
Sodium 150 H mmol/L
(135-145)
Chloride 111 H mmol/L
(98-107)
BUN 26 H mg/dl
(7-17)
Creatinine 1.6 H mg/dL
(0.6-1.0)
Glucose 123 H mg/dl
(70-99)
Lactic Acid
Urine Ketones Trace A
(Negative)
Ur Occult Blood Reflex 4+ A
(Negative)
Urine Nitrite (Reflex) Positive A
(Negative)
Leukocyte Esterase Rfl 2+ A
(Negative)
Urine RBC 30-40 A /HPF
(0-2)
Urine WBC (Reflex) 80-90 A /HPF
(0-5)
Urine Bacteria (Reflex) Many A
(Negative)
Urine Albumin (Reflex) 3+ A
(Neg - Trace)
08/21/24
18:11
RBC
Hgb
Hct
MCV
MCH
MCHC
RDW
Abs Immat Gran (auto)
Absolute Lymphs (auto)
Immature Gran %
Neutrophils %
Lymphocytes %
VBG pO2
VBG HCO3
Sodium
Chloride
BUN
Creatinine
Glucose
Lactic Acid 2.5 H mmol/L
(0.7-2.0)
Urine Ketones
Ur Occult Blood Reflex
Urine Nitrite (Reflex)
Leukocyte Esterase Rfl
Urine RBC
Urine WBC (Reflex)
Urine Bacteria (Reflex)
Urine Albumin (Reflex)
08/21/24 12:41
08/21/24 12:41
Vital Signs
Initial and Last Documented VS:
Initial Vital Signs
Temp Pulse Resp BP Pulse Ox
98.2 F 100 16 100/68 98
08/21/24 12:15 08/21/24 12:15 08/21/24 12:15 08/21/24 12:15 08/21/24 12:15
Last Documented Vital Signs
Temp Pulse Resp BP Pulse Ox
97.7 F 68 18 118/76 97
08/22/24 07:05 08/22/24 07:05 08/22/24 07:05 08/22/24 07:05 08/22/24 07:05
<SHAYLA Thornton - Last Filed: 08/22/24 10:47>
MDM/Problems Addressed
MDM/Problems Addressed:
Patient is a 33-year-old female with past medical history of TBI brain tumor seizures from [facility] sent for evaluation. Chest pain was initially noted as the reason patient was sent to the ER however I did speak with
staff who reports the patient seems more tired today. She has history of ureteral stents at [facility] in July. She is due for stent exchange in September. Patient presents awake alert she is sleepy but will answer questions. She is
afebrile nontachycardic white count is normal hemoglobin is 10.1 which is actually improved from prior labs. Patient's BUN is 26 creatinine is 1.6 which is elevated. Sodium is elevated at 150.
Case reviewed with ED physician LR was ordered. Patient's urine appears infected with history of stents CAT scan ordered however Rocephin ordered as well.
<SHAYLA Thornton - Last Filed: 08/22/24 10:47>
*Pulse Oximetry
Patient hypoxic: no
<Abhishek Coppola DO - Last Filed: 08/21/24 20:28>
*Radiology
Radiology exam reviewed: preliminary read by ED provider (Bilateral stent)
*Dish Maker Interpretation
Rate: normal
Interpretation: normal
Rhythm: sinus
*Critical Care Note
Total Time (30-74mins, 75-104mins- exclusive of procedures): Not Applicable
Data Reviewed
Source: patient
<Abhishek Coppola DO - Last Filed: 08/21/24 20:28>
Patient Management
Discussion with other providers: Hospitalist and Biometric Screener (Case discussed with Dr. Mccall)
Escalation/DeEscalation of care consider admission/obs:
31-year-old female with history of traumatic brain injury, hydrocephalus, brain tumor and bilateral ureteral stents who presents with change in mental status and chest pain. On my assessment she is much more alert after IV fluid she states she is
feeling a little better she was little nauseous earlier. Exam: Awake and alert, speech is somewhat slurred but understandable. No respiratory distress. Assessment and plan: Case was discussed with urology. Given her stents and altered mental
status, I do think is reasonable to treat her with IV antibiotics and admit. Does seem a little better after IV fluids.
<Abhishek Coppola DO - Last Filed: 08/21/24 20:28>
Update Note
Update Note:
Case was discussed with neurosurgery who reviewed imaging and is comfortable with the patient being admitted here.
ED Attending Note
<SHAYLA Thornton - Last Filed: 08/22/24 10:47>
-
Portions of this chart may have been created with voice recognition software.� Occasional wrong word or��sound alike� substitutions may have occurred due to the inherent limitations of voice recognition software.
<Abhishek Coppola DO - Last Filed: 08/21/24 20:28>
ED Attending Note
Patient seen and examined by attending physician: Yes
I performed the substantive portion of visit, reviewed & personally made and approve the management plan that is documented in note by myself or DANTE.: Yes
Discharge Plan
Departure
Patient Disposition: Admit
Date of Disposition: 08/21/24
Time of Disposition: 19:22
Admit to: Med/Surg
Presentation/result/management discussed w/ accepting MD/DO: Hospitalist
Discharge Problem:
Urinary tract infection, Acute kidney injury
Interventions
Interventions:
*Risk Screen - Suicide Last Done: 08/21/24 12:15
*General Assessment Last Done: 08/21/24 23:35
*Neglect/Abuse Screening Last Done: 08/21/24 12:15
ED- Fall Risk Assessment Last Done: 08/21/24 20:08
*ED COVID-19 Vaccine History Last Done: 08/21/24 16:27
*Nursing Disposition Last Done: 08/21/24 23:35
ED- Cardiac Assessment Last Done: 08/21/24 20:08
Discharge Date and Time
Discharge Date/Time: 08/21/24 23:36
[2024-08-21 17:01] LABS: Urine Albumin 3+ (Neg - Trace); Urine Bilirubin Negative (Negative); Urine Character Slightly Cloudy (Clear); Urine Color Yellow; Urine Glucose Negative (Negative); Urine Ketone Trace (Negative); Urine Leukocyte 2+ (Negative); Urine Nitrite Positive (Negative); Urine Occult Blood 4+ (Negative); Urine Urobilinogen Negative (Neg - 1+)
[2024-08-21 17:09] LABS: Urine Squamous Cell 0-2 /LPF (Few)
[2024-08-21] MEDS: LR 1000 IV (17:09)
[2024-08-21 17:11] LABS: Urine Bacteria Many (Negative); Urine Calcium Oxalate Crystals Present; Urine Red Blood Cell 30-40 /HPF (0-2); Urine White Cell 80-90 /HPF (0-5)
[2024-08-21 17:22] LABS: Troponin I < 0.012 ng/ml
[2024-08-21] MEDS: STERILE WATER FOR INJECTION 10 ML IV (18:14)
[2024-08-21] MEDS: ROCEPHIN 1000 MG IV (18:14)
[2024-08-21] MEDS: FLUSH (NSS) 10 FLUSH IV ×2 (18:14→18:15)
[2024-08-21 18:16] LABS: Venous Blood Gas B.E. 1.8 mmol/L (-4 to +4); Venous Blood Gas HCO3 27.2 mmol/L (22-27); Venous Blood Gas O2 Sat % 93.9 %; Venous Blood Gas pCO2 46 mmHg (35-48); Venous Blood Gas pH 7.38 (7.32-7.43); Venous Blood Gas pO2 64 mmHg (30-50)
[2024-08-21 18:30] LABS: Lactic Acid 2.5 mmol/L (0.7-2.0)
[2024-08-21] MEDS: NSS 1000 IV (20:00)
[2024-08-21] MEDS: LR IV ×4 (20:15→20:23)
--- NOTE | 2024-08-21 20:47 | HPS.HSE ---
Addendum entered and electronically signed by Shahid Mota DO 08/21/24 22:42:
Patient seen and examined independently. Agree with findings and plan as set forth by SHAYLA Koch.
Patient is a 33y F with PMH significant for 'TBI', hydrocephalus brain tumor s/p resection, HAT MARKER shunt, seizure disorder and recent hospitalization at [facility] for kidney stones who presents to ED for evaluation of reported chest pain and altered
mental status. History from facility notes that patient seemed less interactive / responsive than usual today. She apparently complained opf chest discomfort for the past 2 days. 911 was called and she was transported to the ED for further
evaluation.
In the ED, patient has had varying mental status - at times awake and interactive and at other times quite somnolent / unresponsive.
History from patient seems unreliable. She tells me that she was complaining of arm and leg pain - no mention of chest pain. She denies any fevers, urinary symptoms, etc.
At the time of my exam she is poorly responsive - even to noxious stimuli; however, she wakes promptly when a cold towel is placed on her chest.
Ass:
Acute TME
Suspected UTI - present on admission
Bilateral Ureteral Stents
SOCORRO
Nephrolithiasis
Dehydration / Hypernatremia
Chronic Macrocytic Anemia
Hydrocephalus Brain Tumor with HAT MARKER Shunt
Intracerebral Fluid Collections - ? Etiology / Acuity
Bipolar Depression
Hypertension
DM-II
Seizure Disorder
Hypopituitarism
Plan:
Admit for further evaluation and treatment.
Mental status seems primary abnormality based on my exam / history.
? Acute TME secondary to infection with b/l ureteral stents in place.
IV abx with ceftriaxone for now pending culture data.
Urology evaluation.
Obtain records from [facility].
IVF support for SOCORRO and hypernatremia - follow for clinical improvement coincident with improvement in labs / lytes.
CT scan with two thin fluid collections appreciated. Neurosurgery notes that they are chronic / seen on prior imaging.
HAT MARKER Shunt in place and no evidence of shunt malfunction, acute bleed, etc.
Formal Neurosurgery evaluation for any additional recommendations.
Follow for any changes in mental status / focal neurologic symptoms /etc.
Continue usual med regimen in regards to hypopituitarism / hormone replacements / etc.
Stress dose steroids if any evidence of hypotension / hemodynamic instability.
Original Note:
Family Physician
-
Family Physician: PHYSICIAN PRIVATE
Chief Complaint
-
chest pain
History of Present Illness
Patient is a 33-year-old female with past medical history significant for hypertension, hypothyroidism, IDDM, seizures, traumatic brain injury, hydrocephalus brain tumor, bipolar, depression, anxiety, and recent kidney stone with stent who presented
to [facility] ED via EMS. Patient minimally responsive at assessment and poor historian. EMS report states that patient reported she has had substernal non radiating chest pains for two days, non stop, nothing makes it better or worse and described
as stabbing pain. Patient denied to EMS SOB, nausea, back, neck or jaw pain, diaphoresis, dizziness, blurred vision, headache, fever or recent illness or injury.
Medical History
Past Medical History
Past Medical History: Reports Other
Additional Past Medical History:
hypertension
hypothyroidism
IDDM
seizures
traumatic brain injury
hydrocephalus brain tumor
bipolar
depression
anxiety
recent kidney stone with stent
Past Surgical History: Reports Other
Additional Past Surgical History:
craniotomy
HAT MARKER shunt
renal stent
Social History
Unable to obtain full social history at this time due to: Patient Non-verbal
Family History
Family History: Not pertinent and Unable to Obtain
Allergies / Home Medications
Allergies reflects when Allergies were last updated in [facility].
Home Medications with original date entered in [facility]
Allergy/Medication List:
Allergies
Allergy/AdvReac Type Severity Reaction Status Date / Time
No Known Allergies Allergy Verified 08/21/24 12:18
Home Medications
cholecalciferol (vitamin D3) 25 mcg (1,000 unit) tablet 1,000 units PO DAILY Supplement 10/18/18
gabapentin 300 mg capsule 300 mg PO TID@0800,1300,2000 Seizures 10/18/18
levetiracetam 500 mg tablet 1,000 mg PO BID Seizures 10/18/18
oxybutynin chloride 5 mg tablet 5 mg PO BID Urinary issue 10/18/18
prednisone 5 mg tablet 5 mg PO DAILY hypopituitarism 10/18/18
magnesium oxide 400 mg PO QID Supplement 12/17/18
riboflavin (vitamin B2) 400 mg tablet 400 mg PO DAILY Supplement 12/17/18
acetaminophen 325 mg tablet 650 mg PO Q4HPRN PRN mild pain,fever 01/25/19
loperamide 2 mg capsule 2 mg PO DAILYPRN PRN diarrhea 01/25/19
atorvastatin 20 mg tablet 20 mg PO HS High Cholesterol 10/02/23
buspirone 15 mg tablet 7.5 mg PO BID anxiety 10/02/23
cranberry wmeb-W-dcnohbsd coagulans 250 mg-30 mg-15 mg tablet (Azo Cranberry Plus Probiotic) 1 tab PO DAILY UTI Prevention 10/02/23
cyanocobalamin (vitamin B-12) 1,000 mcg tablet (Vitamin B-12) 1,000 mcg PO DAILY vit B12 deficiency 10/02/23
dextromethorphan-guaifenesin 10 mg-100 mg/5 mL oral liquid 10 ml PO Q4HPRN PRN cough 10/02/23
docusate sodium 100 mg capsule 100 mg PO [id number] PRN constipation 10/02/23
famotidine 40 mg tablet 40 mg PO HS GERD 10/02/23
ferrous gluconate 324 mg (38 mg iron) tablet 324 mg PO BID@0800,1700 Supplement 10/02/23
folic acid 1 mg tablet 1 mg PO DAILY Supplement 10/02/23
levothyroxine 100 mcg tablet 100 mcg PO DAILY@0700 hypothyroidism 10/02/23
lorazepam 0.5 mg tablet 0.5 mg PO Q8HPRN PRN anxiety 10/02/23
metformin 500 mg tablet 1,000 mg PO BID@0800,1700 diabetes 10/02/23
miconazole nitrate 2 % topical cream 1 applic topical DAILY bilateral groin for fungal rash 10/02/23
midodrine 5 mg tablet 10 mg PO TID@0800,1300,1700 low blood pressure 10/02/23
nystatin 100,000 unit/gram topical powder (Nyamyc) 1 applic topical TIDPRN PRN rash 10/02/23
omega 2-gor-hlm-fish oil 1,000 mg (120 mg-180 mg) capsule (Fish Oil) 1 cap PO TID@0800,1300,2000 Supplement 10/02/23
ondansetron 4 mg disintegrating tablet 4 mg PO Q8HPRN PRN nausea/vomiting 10/02/23
psyllium 1 packet PO DAILYPRN PRN constipation 10/02/23
sertraline 100 mg tablet 100 mg PO DAILY depression 10/02/23
trazodone 50 mg tablet 50 mg PO HS insomnia 10/02/23
trolamine salicylate 10 % topical cream (Aspercreme) 1 applic topical BID knee pain 10/02/23
zinc oxide 1 applic topical QID@08,12,17,20 to buttocks after ech toileting 10/02/23
acetaminophen 500 mg tablet 1,000 mg PO DAILY 08/21/24
desmopressin 0.1 mg tablet 0.1 mg PO BID 08/21/24
risperidone 0.5 mg tablet 0.5 mg PO HS 08/21/24
sumatriptan succinate 50 mg tablet 50 mg PO DAILYPRN PRN migraine 08/21/24
Review of Systems
-
History Source: Ambulance Crew (EMS report reviewed )
Constitutional: Reports No Symptoms
EENT: Reports No Symptoms
Respiratory: Reports No Symptoms
Cardiac: Reports Chest Pain
Abdomen/GI: Reports No Symptoms
: Reports No Symptoms
Musculoskeletal: Reports No Symptoms
Skin: Reports No Symptoms
Neurological: Reports No Symptoms
Endocrine: Reports No Symptoms
Hematologic/Lymphatic: Reports No Symptoms
Psych: Reports No Symptoms
Physical Exam
Vital Signs
Vital Signs
Temp Pulse Resp BP Pulse Ox
98.2 F 67 20 116/71 95
08/21/24 12:15 08/21/24 20:30 08/21/24 20:34 08/21/24 20:00 08/21/24 20:34
Physical Exam
General: Well Developed, Well Nourished and No Apparent Distress
HEENT: NormoCephalic, Moist mucous membranes and Atraumatic
Respiratory: Clear
Cardiac: S1/S2 and Regular Rhythm; No Murmur, Rub or Gallop
Breast: Deferred by me
GI: Soft, Non Tender, Non Distended and Normal Bowel Sounds; No Organomegaly
Rectal: Deferred by Provider
Genito-urinary: Deferred by me
Musculoskeletal: No Clubbing, No Cyanosis and No Edema
Skin: Warm and IV/Catheter Site; No Rash
Neuro: Slurred Speech
Laboratory Results
-
08/21/24 12:41
08/21/24 12:41
Laboratory Results
Lactic Acid 2.5 mmol/L (0.7-2.0) H 08/21/24 18:11
Total Bilirubin 0.6 mg/dl (0.2-1.3) 08/21/24 12:41
AST 20 U/L (14-36) 08/21/24 12:41
ALT 18 U/L (0-35) 08/21/24 12:41
Alkaline Phosphatase 63 U/L (38-126) 08/21/24 12:41
Troponin I < 0.012 ng/ml 08/21/24 16:48
Data Reviewed
-
Diagnostic Radiology: Report Reviewed by me (CXR: No acute cardiopulmonary process.)
CT Scan: Report Reviewed by me (Head: (see report); Abdomen/pelvis: (see report))
Lab Data: Labs Reviewed by me
Impression/Plan
-
IMPRESSION/PLAN:
#Acute TME/Dehydration
Head CT: Interval development of bilateral small extra-axial collections, most likely subacute subdural hemorrhage/hematoma formation. No acute hemorrhage.
Subtle shift of the septum pellucidum to the left of midline by approximately 4.5 mm, without significant change.
The ventricles are collapsed, more so than on prior examination. No hydrocephalus.
The ventriculoperitoneal shunt catheter is in place, unchanged.
Stable postoperative changes in the left middle cranial fossa.
- Admit to telemetry
- Consult neurosurgery
- neurochecks
- hold buspirone, and lorazepam
- IVF
- consult PT/OT
#UTI/bilateral ureteral stents
#recent kidney stone with stent
Abdomen/Pelvis: Progressive mild splenic megaly.
Bilateral internal double-J nephroureteral stents. Moderate bilateral hydronephrosis. Possibly related to reflux. Cannot exclude stent malfunction/occlusion in the proper clinical setting.
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
No acute inflammatory changes within the abdomen or pelvis. No bowel obstruction.
Left ovarian cyst measuring 2.3 cm.
Tiny focus of gas within the bladder; this may be iatrogenic or possibly related to infection with gas producing organism. Other possible considerations may include enterovesical fistula in the proper clinical setting.
- consult urology
- IV ceftriaxone
- IVF
- trend lactic
#hypertension
- continue desmopressin
#hypothyroidism
- continue levothyroxine
#IDDM
- AccuChecks AC & HS
- SSI
- hold metformin
#seizures
- continue levetiracetam and gabapentin
#traumatic brain injury
#hydrocephalus brain tumor
Head CT: Interval development of bilateral small extra-axial collections, most likely subacute subdural hemorrhage/hematoma formation. No acute hemorrhage.
Subtle shift of the septum pellucidum to the left of midline by approximately 4.5 mm, without significant change.
The ventricles are collapsed, more so than on prior examination. No hydrocephalus.
The ventriculoperitoneal shunt catheter is in place, unchanged.
Stable postoperative changes in the left middle cranial fossa.
- consult neurosurgery
#bipolar
#depression
#anxiety
- hold buspirone and lorazepam
- continue risperidone, sertraline and tazadone
Code Status: Full Code
DVT Prophylaxis: SCDs
[2024-08-21 21:32] LABS: COVID-19 Antigen Negative (Negative)
[2024-08-21] MEDS: 0.45%NACL 1000 IV (23:05)
[2024-08-21] MEDS: PEPCID 40 MG PO (23:51)
[2024-08-21] MEDS: RISPERDAL 0.5 MG PO (23:51)
[2024-08-21] MEDS: DESYREL 50 MG PO (23:51)
[2024-08-21] MEDS: LIPITOR 20 MG PO (23:51)
[2024-08-22] VITALS (9 sets, daily range): BP systolic 102–120; BP diastolic 73–83; PULSE 71; O2SAT 99; BMI 33.6; BMI 33.9
[2024-08-22 00:24] LABS: Glucose - Point of Care 89 mg/dl (70-99)
[2024-08-22 00:49] LABS: Troponin I < 0.012 ng/ml
--- NOTE | 2024-08-22 01:32 | PTCARENOTE ---
Pt transferred from ED via stretcher. Pt pulled over into bed in room 320 with staff assistance. Pt has been confused, does not know what month/year/time it is and continuously asking how old she is. Pt oriented to room, call [facility] within reach. Will
continue to monitor pt.
[2024-08-22 01:44] LABS: Folate > 20.0 ng/ml (2.76-20); Vitamin B12 839 pg/ml (239-931)
[2024-08-22] MEDS: 0.45%NACL 1000 IV ×3 (06:05→21:00)
[2024-08-22 06:56] LABS: Hematocrit 29.8 % (37.0-47.0); Hemoglobin 9.1 g/dL (12.0-16.0); Mean Corp Hgb Conc. 30.5 g/dL (33.0-37.0); Mean Corpuscular Hgb 31.3 pg (27.0-31.0); Mean Corpuscular Volume 102.4 fL (81.0-99.0); Mean Platelet Volume 9.9 fL (7.4-10.4); Platelet Count 190 10^3/uL (130-400); Red Blood Cell Count 2.91 10^6/uL (4.20-5.40); Red Cell Dist. Width 16.7 % (11.5-14.5); White Blood Cell Count 3.8 10^3/uL (4.8-10.8)
[2024-08-22 07:09] LABS: Troponin I < 0.012 ng/ml
[2024-08-22 07:52] LABS: Glucose - Point of Care 105 mg/dl (70-99)
[2024-08-22 07:52] LABS: Blood Urea Nitrogen 23 mg/dl (7-17); Carbon Dioxide 28 mmol/L (22-30); Chloride 108 mmol/L (98-107); Estimated Creatinine Clearance 85 ml/min; Glucose 96 mg/dl (70-99); Magnesium 2.1 mg/dl (1.6-2.3); Phosphorus 4.3 mg/dl (2.5-4.5); Potassium 4.1 mmol/L (3.5-5.1); Sodium 145 mmol/L (135-145); eGFR > 60.00
[2024-08-22] MEDS: FOLVITE 1 MG PO (08:33)
[2024-08-22] MEDS: KEPPRA 1000 MG PO ×2 (08:33→20:57)
[2024-08-22] MEDS: SYNTHROID 100 MCG PO (08:33)
[2024-08-22] MEDS: ZOLOFT 100 MG PO (08:33)
[2024-08-22] MEDS: DDAVP 0.1 MG PO ×2 (08:33→20:57)
[2024-08-22] MEDS: DELTASONE 5 MG PO (08:33)
[2024-08-22] MEDS: NEURONTIN 300 MG PO ×3 (08:33→20:57)
[2024-08-22] MEDS: ProAmatine 10 MG PO ×3 (08:33→17:11)
[2024-08-22] MEDS: NOVOLOG FLEXPEN-LOW RESISTANCE SC (08:34)
[2024-08-22 08:51] LABS: Glycohemoglobin (HgbA1c) 5.3 % (4.0-5.6)
--- NOTE | 2024-08-22 11:40 | PTOTSP ---
ST Acute Care Evaluations
Pt currently presented with oral, pharyngeal, and esophageal parameters that are within functional limits for safe PO intake of all consistencies. No overt s/s of penetration or aspiration noted at bedside. No skilled dysphagia services warranted at
this time.
Pt currently presents with speech that is mildly slow and mildly dysarthric, but she demonstrates sufficient basic speech, receptive language, and expressive language skills that enable her to communicate her basic wants and needs without issue. Pt
currently presents with impaired orientation (place, time) as well as impaired cognitive linguistic skills (e.g. generative naming, complex yes/no questions, short term memory, attention). It is difficult to discern if pt's current presentation is
consistent with her baseline as a result of her childhood brain anomalies/surgeries, acute toxic/metabolic encephalopathy, or an acute/subacute deviation that was identified on her CT Head during this admission. As a result, we will continue to
monitor and and tx her speech, language, and cognitive deficits as she receives her neurologic work-up during this admission in the event these deficits are new.
Recommendations:
- Continue with regular solids, thin liquids, meds as tolerated. General aspiration precautions. No skilled dysphagia services warranted.
- CATALYST RECOVERY OPERATOR to f/u for monitoring/tx of: dysarthria, rate of speech, orientation, and cognitive linguistic skills.
[2024-08-22 12:05] LABS: Glucose - Point of Care 178 mg/dl (70-99)
--- NOTE | 2024-08-22 12:07 | W.PN.URO.CBU ---
Today's Communication / Plan
-
will conside jacobsen
Assessment / Plan
-
sepsis will await cxs and decide on exchange or removal of stents pa outpatient if responds to iv ans will consider jacobsen
Diagnosis
-
Date of Service: August 22, 2024
-
Patient Diagnosis:sepsis with bilateral jj stent must seeif stents arsource of bacteria For now iv targetd antibiotics if srtable home on abs and returnto treating uroogist to see if stents can be removed. may need jacobsen to empty bladder
Post Op Day:
Subjective
-
no gu problems
Objective
-
Vital Signs
Temp Pulse Resp BP Pulse Ox
97.9 F 72 18 110/73 97
08/22/24 11:05 08/22/24 11:05 08/22/24 11:05 08/22/24 11:05 08/22/24 11:05
Intake and Output
08/21/24 08/22/24 08/23/24
06:59 06:59 06:59
Intake Total 720 / 720
Balance 720 / 720
Intake:
Oral fluids 720 / 720
Other:
How many times incontinent 2
SATURATED amount urine
Laboratory Results
08/22/24 06:11
08/22/24 06:11
Review of Systems
-
: No Symptoms
Physical Exam
-
General -non toxic
Chest - clear bilaterally
Abdomen - soft, non-tender, positive bowel sounds, no CVAT, no incisional pain or distention
Genitalia - normal
Rectal - normal
Skin - warm & dry with no rash
Neuro - AOx3, no motor deficits
Extremities - no clubbing, no cyanosis, no edema
Incision - clean, dry
Dressing - clean, dry, intact
Care Review
Data Reviewed
Discussed with: Nursing
[2024-08-22] MEDS: NOVOLOG FLEXPEN-LOW RESISTANCE 1 UNITS SC ×2 (12:17→17:22)
--- NOTE | 2024-08-22 13:58 | W.PN.HOSP.TC ---
Today's Communication/Plan
-
See plan above
Assessment / Plan
Assessment / Plan
Acute TME-suspect secondary to infectious process-improving
Complicated UTI with the bacteremic E. coli and bilateral ureteral stents in place-increase the dose of ceftriaxone to 2 g. Blood pressure is stable. Consult ID. Urology following.
Bilateral Ureteral Stents-urology input noted now with the bacteremic UTI consider exchange of the stents
SOCORRO-suspect zkjgyeld-treyqlqaz-IR fluids episode current bag as patient is having adequate oral intake
Nephrolithiasis-nonobstructive
Dehydration / Hypernatremia-improved with fluids
Chronic Macrocytic Anemia-H&H stable
Hydrocephalus Brain Tumor with BATTERY LOADER Shunt-continue with her home antiepileptics
Intracerebral Fluid Collections - ? Etiology / Acuity- Neurosurgery notes that they are chronic / seen on prior imaging.
BATTERY LOADER Shunt in place and no evidence of shunt malfunction, acute bleed, etc.
Formal Neurosurgery evaluation for any additional recommendations.
Bipolar Depression-continue the home medication
Orthostatic hypotension-continue with the midodrine
DM-II-hold metformin and continue with sliding scale insulin
Seizure Disorder-continue with home antiepileptic
Hypopituitarism-Continue usual med regimen in regards to hypopituitarism / hormone replacements / etc.
Stress dose steroids if any evidence of hypotension / hemodynamic instability.
Full code
DW RN
Total time spent on today's encounter was 52 minutes which included time spent in counseling the patient/family regarding diagnosis and treatment plan as listed above, goals of care, and symptom management. Case was discussed with nursing staff,
specialists, and care coordinators/case management. All labs and imaging personally reviewed by me. Remainder the time spent in detailed review of previous records, lab data, imaging, and other medical provider documentation.
Anticipated Discharge: > 48 hours
Subjective/Interval History
-
Date of Service: August 22, 2024
Patient today sitting in the chair. Alert and oriented to place but did not get the name of the hospital right. She thought she was at [facility].
She feels better and stronger today.
She has dysuria. She remembers recent urine infection needing ureteral stents placed at [facility].
Denies any sore throat. Denies shortness of breath. Cough present.
No chest pain. No nausea vomiting. Tolerating diet and had full lunch.
Objective Data
-
Labs:
Laboratory Results
08/22/24
06:11
WBC 3.8 L
Hgb 9.1 L
Hct 29.8 L
Plt Count 190 D
Sodium 145
Potassium 4.1
Chloride 108 H
Carbon Dioxide 28
BUN 23 H
Creatinine 1.1 H
Glucose 96
Calcium 8.0 L
Vital Signs:
Vital Signs
Temp Pulse Resp BP Pulse Ox
97.9 F 72 18 110/73 97
08/22/24 11:05 08/22/24 11:05 08/22/24 11:05 08/22/24 11:05 08/22/24 11:05
I&O
08/21/24 08/22/24 08/23/24
06:59 06:59 06:59
Intake Total 720 / 720
Balance 720 / 720
Review of Systems
-
Neuro: Denies Dizzy
Physical Exam
-
General: No Apparent Distress
HEENT: Moist Mucous Membranes
Respiratory: Non Labored Respirations; Negative Wheezes or Accessory Resp Muscle Use
Cardiac: Regular Rhythm and S1/S2
GI: Soft and Nontender
Neuro: AO x 3
Psych: Calm
Data Reviewed
-
Labs: Labs Reviewed by me
--- NOTE | 2024-08-22 15:45 | CON.ID ---
Consultation
-
Date/Time Consultation Requested: 08/22/2024 1353
Date/Time Consultation Performed: 08/22/2024 1520
Requesting Provider: Dr. Parks
Performing Provider: Dr. Bettencourt
Reason for Consultation: UTI, influenza
Chief Complaint / Past History
History of Present Illness
Lindsay Rajput is a 33-year-old female with a significant past medical history of brain tumor and subsequent hydrocephalus requiring WAGE CONCILIATOR shunt being evaluated at the request of Dr. Parks in regards to bacteremia and influenza. History is obtained
from chart review
Patient presents to [facility] on 08/21 from a snf following the development of chest pain, and increasing fatigue. According to reviewed notes the patient recently was hospitalized at [facility] for possible nephrolithiasis. Patient has
bilateral stents which reportedly will require replacement at some point.
Present, patient reports some back discomfort. Admits to continued fatigue. No shortness of breath.
Past History
Additional Past Medical History:
Hx brain tumor; subsequent hydrocephalus and WAGE CONCILIATOR shunt placement
Bipolar
Depression/anxiety
HTN
DM type II
Seizure disorder
Hypopituitarism
Nephrolithiasis
Diabetes insipidus
Additional Past Surgical History:
Craniotomy
WAGE CONCILIATOR shunt
Allergy History:
No Known Allergies Allergy (Verified 08/21/24 12:18)
Medications Reviewed: Yes
Current Antibiotics:
Oseltamavir 75 mg p.o. twice daily
Rocephin 2 g IV every 24 hours
Social History
Tobacco: Non-Smoker
Alcohol: None
Drug: None
Personal: Single
Living: Other (residential)
Family History
Family History: Not Pertinent
Review of Systems
Vital Signs
Temp Pulse Resp BP Pulse Ox
97.6 F 59 17 112/77 98
08/22/24 15:05 08/22/24 15:05 08/22/24 15:05 08/22/24 15:05 08/22/24 15:05
Physical Exam
Physical Exam
Constitutional: No Acute Distress, Comfortable, Chronically Ill and Non-toxic
Eyes: Pupils Equal, Pupils Round, No Conjunctival Hemorrhage and Sclera Anicteric
Oral: No Thrush and No Ulcers
Cardiovascular: Regular Rate and S1/S2; Negative S3/S4
Pulmonary: Clear; Negative Wheezes, Rales or Rhonchi
Gastrointestinal: Soft, Non Tender, Non Distended and Normal Bowel Sounds
Genito-Urinary: CVA Tenderness (right)
Extremities: Negative Edema, Cyanosis or Erythema
Skin: Warm and Dry; Negative Rash or Jaundice
Neurological: Awake and Alert
Psychological: Calm
.
Lab / Diagnostic Study Results
08/22/24 06:11
08/22/24 06:11
Abs Immat Gran (auto) 0.1 10^3/uL (0-0.05) H 08/21/24 12:41
Absolute Neuts (auto) 5.3 10^3/uL (1.4-6.5) 08/21/24 12:41
Absolute Lymphs (auto) 0.7 10^3/uL (1.2-3.4) L 08/21/24 12:41
Absolute Monos (auto) 0.6 10^3/uL (0.1-0.6) 08/21/24 12:41
Absolute Basos (auto) 0.0 10^3/uL (0-0.2) 08/21/24 12:41
Immature Gran % 1.1 % (0-0.5) H 08/21/24 12:41
Neutrophils % 79.0 % (42.2-75.2) H 08/21/24 12:41
Lymphocytes % 10.5 % (20.5-51.1) L 08/21/24 12:41
Monocytes % 8.6 % (1.7-9.3) 08/21/24 12:41
Eosinophils % 0.3 % (0-6) 08/21/24 12:41
Basophils % 0.5 % (0-2) 08/21/24 12:41
Lactic Acid 1.0 mmol/L (0.7-2.0) 08/22/24 00:13
Ur Squamous Epith Cells 0-2 /LPF (Few) 08/21/24 16:46
Microbiology Results
Micro:
08/21/24 18:12 Blood Culture - Preliminary
Blood/Venous Escherichia coli
Gram Stain - Preliminary
08/22/24 12:19 MRSA Screen - Pending
Nose
08/21/24 16:46 Urine Culture - Preliminary
Urine Gram negative bacilli
08/21/24 21:08 Influenza Types A & B (AB) - Final
Nasal Swab Influenza A Positive, NAAT
08/21/24 18:12 Blood Culture - Pending
Blood/Venous
Imaging:
08/21/2024 CT abdomen/pelvis without contrast: Progressive mild splenomegaly. Bilateral internal double-J nephroureteral stents. Moderate bilateral hydronephrosis. Possibly related to reflux. Cannot exclude stent malfunction/occlusion in the proper
clinical setting. 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 No acute inflammatory changes within the abdomen or pelvis. No bowel obstruction. Left ovarian cyst measuring 2.3 cm.
Assessment / Plan
Influenza A infection
E. coli bacteremia
SOCORRO
Lactic acidosis
Complicated urinary tract infection
Hx brain tumor; subsequent hydrocephalus and WAGE CONCILIATOR shunt placement
Bipolar
Depression/anxiety
HTN
DM type II
Seizure disorder
Hypopituitarism
Nephrolithiasis
Diabetes insipidus
Recommendations:
Continue with empiric ceftriaxone in the treatment of recovered E. coli.
Continue with oseltamavir, to complete a 5-day course.
Monitor white count and temperature curve. Repeat blood cultures should patient develop fever above 100.5 degrees.
Await further culture data of recovered E. coli isolate to further de-escalate antibiotic therapy.
Further recommendations as additional data is returned.
Continue droplet precautions for influenza.
[2024-08-22 16:48] LABS: Glucose - Point of Care 160 mg/dl (70-99)
[2024-08-22] MEDS: ROCEPHIN 2000 MG IV (17:12)
[2024-08-22] MEDS: STERILE WATER FOR INJECTION 20 ML IV (17:12)
[2024-08-22] MEDS: PEPCID 40 MG PO (20:58)
[2024-08-22] MEDS: DESYREL 50 MG PO (20:58)
[2024-08-22] MEDS: LIPITOR 20 MG PO (20:58)
[2024-08-22] MEDS: TAMIFLU 75 MG PO (20:58)
[2024-08-22] MEDS: RISPERDAL 0.5 MG PO (20:59)
[2024-08-22 21:38] LABS: Glucose - Point of Care 163 mg/dl (70-99)
[2024-08-23 03:17] VITALS: BP 114/62
[2024-08-23 06:00] VITALS: BMI 34.1
[2024-08-23 06:41] LABS: Hematocrit 29.1 % (37.0-47.0); Hemoglobin 9.2 g/dL (12.0-16.0); Mean Corp Hgb Conc. 31.6 g/dL (33.0-37.0); Mean Corpuscular Hgb 31.3 pg (27.0-31.0); Mean Platelet Volume 9.8 fL (7.4-10.4); Platelet Count 185 10^3/uL (130-400); Red Blood Cell Count 2.94 10^6/uL (4.20-5.40); Red Cell Dist. Width 16.3 % (11.5-14.5); White Blood Cell Count 5.5 10^3/uL (4.8-10.8)
[2024-08-23 07:15] VITALS: BP 109/68
[2024-08-23] MEDS: DDAVP 0.1 MG PO ×2 (07:25→20:51)
[2024-08-23] MEDS: ZOLOFT 100 MG PO (07:25)
[2024-08-23] MEDS: ProAmatine 10 MG PO ×3 (07:25→16:54)
[2024-08-23] MEDS: KEPPRA 1000 MG PO ×2 (07:25→20:52)
[2024-08-23] MEDS: FOLVITE 1 MG PO (07:25)
[2024-08-23] MEDS: NEURONTIN 300 MG PO ×3 (07:25→20:52)
[2024-08-23] MEDS: DELTASONE 5 MG PO (07:26)
[2024-08-23] MEDS: TAMIFLU 75 MG PO ×2 (07:26→20:52)
[2024-08-23] MEDS: SYNTHROID 100 MCG PO (07:26)
[2024-08-23 07:31] LABS: Blood Urea Nitrogen 16 mg/dl (7-17); Calcium 8.4 mg/dl (8.4-10.2); Carbon Dioxide 26 mmol/L (22-30); Chloride 102 mmol/L (98-107); Estimated Creatinine Clearance 117 ml/min; Glucose 110 mg/dl (70-99); Sodium 140 mmol/L (135-145); eGFR > 60.00
[2024-08-23 07:37] LABS: Potassium 3.8 mmol/L (3.5-5.1)
[2024-08-23 08:10] LABS: Glucose - Point of Care 118 mg/dl (70-99)
[2024-08-23] MEDS: NOVOLOG FLEXPEN-LOW RESISTANCE SC (08:11)
--- NOTE | 2024-08-23 08:36 | PN.CDI ---
CDI
- -
CDI:
Physician Documentation Request
Admit Date: 08/21/24 22:13
Dear Doctor Charly,
Please review the following and provide your response in the progress notes.
Clinical Indicators:
PN, 08/22
#Acute TME-suspect secondary to infectious process-improving
#Complicated UTI with the bacteremic E. coli and bilateral ureteral stents in place
#...-increase the dose of ceftriaxone to 2 g.
#Bilateral Ureteral Stents-urology input noted now with the bacteremic UTI
#...consider exchange of the stents
Based on the above and your clinical assessment, please clarify the relationship, if any, between these conditions:
Yes, Complicated UTI is related to/associated with/due to bilateral ureteral stents.
No, Complicated UTI is not related to/associated with/due to bilateral ureteral stents but it is due to ___. (Please specify)
Other (please specify)
Use of terms such as suspected, likely, concern for, or probable (associated with a specific diagnosis that is being evaluated, monitored, or treated as if it exists) are acceptable and can be coded in the inpatient setting, when documented at the
time of discharge.
Thank you,
Dariela Lynn RN BSN CCDS
CDI Specialist
please contact via tiger text
Please use your independent medical judgment in providing your response.
--- NOTE | 2024-08-23 09:23 | W.PN.URO.CBU ---
Today's Communication / Plan
-
continue present care
Assessment / Plan
-
sepsis will await cxs and decide on exchange or removal of stents as outpatient if responds to iv ans will consider jacobsen if pos cxs persists may need jj stent manipulation during this hospitalization
Diagnosis
-
Date of Service: August 23, 2024
-
Patient Diagnosis:
Post Op Day:
Patient Diagnosis:sepsis with bilateral jj stent pos blod and urine cxs For now iv targeted antibiotics if stable home on abs and return to treating urologist to see if stents can be removed. may need jacobsen to empty bladder
Post Op Day:
Subjective
-
no acute complaints
Objective
-
Vital Signs
Temp Pulse Resp BP Pulse Ox
97.9 F 70 16 109/68 99
08/23/24 07:15 08/23/24 07:15 08/23/24 07:15 08/23/24 07:15 08/23/24 07:15
Intake and Output
08/22/24 08/23/24 08/24/24
06:59 06:59 06:59
Intake Total 720 / 720 2049
Balance 720 / 720 2049
Intake:
Oral fluids 720 / 720 2049
Other:
Number of approximated SMALL 1
amounts of urine
Number of approximated MODERATE 1
amounts of urine
How many times incontinent 2
MODERATE amount urine
How many times incontinent 2 1
SATURATED amount urine
Laboratory Results
08/23/24 06:27
08/23/24 06:27
Review of Systems
-
: No Symptoms
Physical Exam
-
General - well developed, well nourished, no acute distress
Chest - clear bilaterally
Abdomen - soft, non-tender, positive bowel sounds, no CVAT, no incisional pain or distention
Genitalia - normal
Rectal - normal
Skin - warm & dry with no rash
Neuro - AOx3, no motor deficits
Extremities - no clubbing, no cyanosis, no edema
Incision - clean, dry
Dressing - clean, dry, intact
Care Review
Data Reviewed
Discussed with: Nursing
--- NOTE | 2024-08-23 09:40 | W.PN.HOSP.TC ---
Today's Communication/Plan
-
Continue with Tamiflu and ceftriaxone
Follow further urological recommendations
Assessment / Plan
Assessment / Plan
Acute TME-suspect secondary to infectious process-unknown baseline but patient is improved since yesterday
Complicated UTI with the bacteremic E. coli and bilateral ureteral stents in place-increase the dose of ceftriaxone to 2 g. Blood pressure is stable. Appreciate ID input. Urology following.
Bilateral Ureteral Stents-urology input noted now with the bacteremic UTI consider exchange of the stents. Patient with left CV angle tenderness.
SOCORRO-suspect prerenal-resolved
Nephrolithiasis-nonobstructive
Dehydration / Hypernatremia-normalized
Chronic Macrocytic Anemia-H&H stable
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
Intracerebral Fluid Collections - ? Etiology / Acuity- Neurosurgery notes that they are chronic / seen on prior imaging.
MOTOR AND CHASSIS INSPECTOR Shunt in place and no evidence of shunt malfunction, acute bleed, etc.
Formal Neurosurgery evaluation for any additional recommendations.
Bipolar Depression-continue the home medication
Orthostatic hypotension-continue with the midodrine
DM-II-hold metformin and continue with sliding scale insulin
Seizure Disorder-continue with home antiepileptic
Hypopituitarism-Continue usual med regimen in regards to hypopituitarism / hormone replacements / etc.
Stress dose steroids if any evidence of hypotension / hemodynamic instability.
Full code
DW Guardian team and updated the clinical, infections,tx plan
Total time spent on today's encounter was 52 minutes which included time spent in counseling the patient/family regarding diagnosis and treatment plan as listed above, goals of care, and symptom management. Case was discussed with nursing staff,
specialists, and care coordinators/case management. All labs and imaging personally reviewed by me. Remainder the time spent in detailed review of previous records, lab data, imaging, and other medical provider documentation.
Anticipated Discharge: > 48 hours
Subjective/Interval History
-
Date of Service: August 23, 2024
Patient without fever or chills but has some cough. Denies any shortness of breath. No sore throat.
Resolved dysuria but complains of back pain which she says is chronic, more so on the left side.
Objective Data
-
Labs:
Laboratory Results
08/23/24
06:27
WBC 5.5
Hgb 9.2 L
Hct 29.1 L
Plt Count 185
Sodium 140
Potassium 3.8
Chloride 102
Carbon Dioxide 26
BUN 16
Creatinine 0.8
Glucose 110 H
Calcium 8.4
Vital Signs:
Vital Signs
Temp Pulse Resp BP Pulse Ox
97.9 F 70 16 109/68 99
08/23/24 07:15 08/23/24 07:15 08/23/24 07:15 08/23/24 07:15 08/23/24 07:15
I&O
08/22/24 08/23/24 08/24/24
06:59 06:59 06:59
Intake Total 720 / 720 2049
Balance 720 / 720 2049
Review of Systems
-
Cardiac: Denies Chest Pain
Abdomen/GI: Denies Abdominal Pain, Nausea, Vomiting, Diarrhea or Anorexia
Neuro: Denies Dizzy
Physical Exam
-
General: No Apparent Distress
HEENT: Moist Mucous Membranes
Respiratory: Clear to Auscultation
Cardiac: Regular Rhythm and S1/S2; Negative Tachycardic
GI: Soft, Nontender, Nondistended and Normal Bowel Sounds
Genito-urinary: Costovertebral Angle Tend (On left side)
Neuro: AO x 3
Psych: Calm
Data Reviewed
-
Labs: Labs Reviewed by me
[2024-08-23 11:36] VITALS: BP 117/77
[2024-08-23 11:37] LABS: Glucose - Point of Care 249 mg/dl (70-99)
[2024-08-23] MEDS: NOVOLOG FLEXPEN-LOW RESISTANCE 2 UNITS SC (12:52)
--- NOTE | 2024-08-23 14:55 | W.PN.ID1 ---
Date of Service
Date of Service: August 23, 2024
Today's Communication
Continue antibiotics
Assessment / Plan
Influenza A infection
E. coli bacteremia
SOCORRO
Lactic acidosis
Complicated urinary tract infection
Hx brain tumor; subsequent hydrocephalus and CIGAR BANDER HAND shunt placement
Bipolar
Depression/anxiety
HTN
DM type II
Seizure disorder
Hypopituitarism
Nephrolithiasis
Diabetes insipidus
Recommendations:
Continue with ceftriaxone (d#3) while inpatient in the treatment of recovered E. coli. At discharge, transition to oral cefdinir. Given possibility of pyelonephritis, would complete a 2-week course of antibiotics.
Continue with oseltamavir (d#2) to complete a 5-day course.
Monitor white count and temperature curve. Repeat blood cultures should patient develop fever above 100.5 degrees.
Continue droplet precautions for influenza.
����������������������������������������������������������
Chief Complaint
-: UTI and Bacteremia
Subjective / Review of Systems
Review of Systems: No Fever, No Chills and No Abdominal Pain
Vital Signs / Physical Exam
Vital Signs
Vital Signs
Temp Pulse Resp BP Pulse Ox
98.1 F 78 18 117/77 96
08/23/24 11:36 08/23/24 11:36 08/23/24 11:36 08/23/24 11:36 08/23/24 11:36
Physical Exam
Constitutional: No Acute Distress, Comfortable, Chronically Ill and Non-toxic
Eyes: No Conjunctival Hemorrhage and Sclera Anicteric
Cardiovascular: S1/S2; Negative S3/S4
Pulmonary: Clear; Negative Wheezes or Rales
Gastrointestinal: Soft, Non Tender and Non Distended
Neurological: Awake and Alert
Psychological: Calm
Objective Data
Lab Data
Lab Results
08/23/24 06:27
08/23/24 06:27
Estimated Creat Clear 117 ml/min 08/23/24 06:27
Lactic Acid 1.0 mmol/L (0.7-2.0) 08/22/24 00:13
Total Bilirubin 0.6 mg/dl (0.2-1.3) 08/21/24 12:41
AST 20 U/L (14-36) 08/21/24 12:41
ALT 18 U/L (0-35) 08/21/24 12:41
Alkaline Phosphatase 63 U/L (38-126) 08/21/24 12:41
Most recent labs reviewed.
Micro Results:
08/22/24 12:19 MRSA Screen - Final
Nose Staph aureus MRSA
08/21/24 18:12 Blood Culture - Preliminary
Blood/Venous Escherichia coli
Gram Stain - Preliminary
08/21/24 16:46 Urine Culture - Final
Urine Escherichia coli
08/21/24 18:12 Blood Culture - Preliminary
Blood/Venous No Growth in 24 hours- Final report to follow
08/21/24 21:08 Influenza Types A & B (AB) - Final
Nasal Swab Influenza A Positive, NAAT
Imaging:
08/21/2024 CT abdomen/pelvis without contrast: Progressive mild splenomegaly. Bilateral internal double-J nephroureteral stents. Moderate bilateral hydronephrosis. Possibly related to reflux. Cannot exclude stent malfunction/occlusion in the proper
clinical setting. 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 No acute inflammatory changes within the abdomen or pelvis. No bowel obstruction. Left ovarian cyst measuring 2.3 cm.
[2024-08-23 15:23] VITALS: BP 110/71
[2024-08-23 16:30] LABS: Glucose - Point of Care 185 mg/dl (70-99)
--- NOTE | 2024-08-23 16:33 | CM ---
Chart reviewed and patient is on isolation, patient was admitted from [facility], where patient is a resident, patient with TBI. information technology project manager reached out to [facility] and spoke with nurse Mcfarlane, per
Maeve patient used a walker with ambulating and w/c, nurse was provided with patient 's current status and progress in physical therapy. Message left for Lindsay BECKWITH, requesting a call back.
[facility]
Report [phone]
[2024-08-23] MEDS: NOVOLOG FLEXPEN-LOW RESISTANCE 1 UNITS SC (16:54)
[2024-08-23] MEDS: STERILE WATER FOR INJECTION 20 ML IV (16:59)
[2024-08-23] MEDS: ROCEPHIN 2000 MG IV (16:59)
[2024-08-23 19:34] VITALS: BP 105/66
[2024-08-23] MEDS: LIPITOR 20 MG PO (20:52)
[2024-08-23] MEDS: DESYREL 50 MG PO (20:52)
[2024-08-23] MEDS: PEPCID 40 MG PO (20:52)
[2024-08-23] MEDS: RISPERDAL 0.5 MG PO (20:52)
[2024-08-23] MEDS: TYLENOL 650 MG PO (21:38)
[2024-08-23 21:47] LABS: Glucose - Point of Care 155 mg/dl (70-99)
[2024-08-23 23:39] VITALS: BP 112/71
[2024-08-24 03:15] VITALS: BP 110/76
[2024-08-24] MEDS: SYNTHROID 100 MCG PO (06:19)
[2024-08-24 06:22] VITALS: BMI 33.9
[2024-08-24 07:00] VITALS: BP 108/71
--- NOTE | 2024-08-24 07:15 | W.PN.URO.CBU ---
Today's Communication / Plan
-
continue antibx
Assessment / Plan
-
ECOLI bacteremia
bilateral ureteral stents
pt stable
continue course of antibx
discharge when medically stable to f/u with treating urologist for evaluation of stents
Diagnosis
-
Date of Service: August 24, 2024
-
Patient Diagnosis:
ECOLI UTI/bacteremia
hx of bilateral ureteral stents
Subjective
-
pt without complaint
remains afebrile with nl wbc
Objective
-
Vital Signs
Temp Pulse Resp BP Pulse Ox
98.8 F 70 16 110/76 98
08/24/24 03:15 08/24/24 03:15 08/24/24 03:15 08/24/24 03:15 08/24/24 03:15
Intake and Output
08/23/24 08/24/24 08/25/24
06:59 06:59 06:59
Intake Total 2049 600 / 600
Balance 2049 600 / 600
Intake:
Oral fluids 2049 600 / 600
Other:
Number of approximated SMALL 1
amounts of urine
Number of approximated MODERATE 1
amounts of urine
How many times incontinent 2 1
MODERATE amount urine
How many times incontinent 1 1
SATURATED amount urine
Laboratory Results
08/23/24 06:27
08/23/24 06:27
Review of Systems
-
Constitutional: No Symptoms
Respiratory: No Symptoms
Cardiac: No Symptoms
Abdomen/GI: No Symptoms
Physical Exam
-
General - no acute distress
[2024-08-24 08:04] LABS: Glucose - Point of Care 121 mg/dl (70-99)
[2024-08-24] MEDS: TAMIFLU 75 MG PO ×2 (08:28→20:13)
[2024-08-24] MEDS: NEURONTIN 300 MG PO ×3 (08:28→20:13)
[2024-08-24] MEDS: ZOLOFT 100 MG PO (08:28)
[2024-08-24] MEDS: ProAmatine 10 MG PO ×3 (08:28→16:45)
[2024-08-24] MEDS: KEPPRA 1000 MG PO ×2 (08:28→20:13)
[2024-08-24] MEDS: DELTASONE 5 MG PO (08:28)
[2024-08-24] MEDS: NOVOLOG FLEXPEN-LOW RESISTANCE SC (08:29)
[2024-08-24] MEDS: FOLVITE 1 MG PO (08:29)
[2024-08-24] MEDS: DDAVP 0.1 MG PO ×2 (08:29→20:13)
[2024-08-24 11:18] VITALS: BP 104/73
[2024-08-24 11:53] LABS: Glucose - Point of Care 307 mg/dl (70-99)
--- NOTE | 2024-08-24 11:54 | W.PN.HOSP.TC ---
Addendum entered and electronically signed by Nicholas Parks MD 08/24/24 12:25:
DW Ms [facility] office and spoke to patient services representative today and told about the discharge plan including antibiotics, follow-up with the primary urologist at [place], and outpatient sleep study.
Original Note:
Today's Communication/Plan
-
DC
Assessment / Plan
Assessment / Plan
Acute TME-suspect secondary to infectious process-unknown baseline but patient is improved since admission.
Complicated UTI with the bacteremic E. coli and bilateral ureteral stents in place-increase the dose of ceftriaxone to 2 g. Blood pressure is stable. Appreciate ID input. Urology advises to return back to primary urologist.
Bilateral Ureteral Stents-urology input noted - return back to primary urologist
SOCORRO-suspect prerenal-resolved
Nephrolithiasis-nonobstructive
Dehydration / Hypernatremia-normalized
Chronic Macrocytic Anemia-H&H stable
Hydrocephalus Brain Tumor with RN EMERGENCY ROOM Shunt-continue with her home antiepileptics
Intracerebral Fluid Collections - ? Etiology / Acuity- Neurosurgery notes that they are chronic / seen on prior imaging.
RN EMERGENCY ROOM Shunt in place and no evidence of shunt malfunction, acute bleed, etc.
Formal Neurosurgery evaluation for any additional recommendations but did not see. With above recs of NSG and no clinical changes will hold on consult.
Intermittent sinus pauses with bradcardia - no HD instability or sypmtoms. Review of cardiology input from [facility] noted -they did not recommend any interventions. Not on ema blocking agents. Based on her sleep pattern eval for
THANG . Follow with sleep doc for sleep study.
Bipolar Depression-continue the home medication
Orthostatic hypotension-continue with the midodrine
DM-II-hold metformin and continue with sliding scale insulin
Seizure Disorder-continue with home antiepileptic
Hypopituitarism-Continue usual med regimen in regards to hypopituitarism / hormone replacements / etc.
Stress dose steroids if any evidence of hypotension / hemodynamic instability.
Full code
With clinical improvement from all quarters and patient tolerating diet will switch to oral cephalosporins and discharge back to her facility.
Total time of DC 35 min
Anticipated Discharge: Today
Subjective/Interval History
-
Date of Service: August 24, 2024
Patient with no overnight events. Nursing staff was noticed to be in deep sleep with some intermittent apneic episodes. No history of sleep apnea.
Patient was sleeping when I entered the room. Was arousable. Feels okay.
Denies any abdominal pain or flank pain. No nausea vomiting. Tolerating diet.
Objective Data
-
Vital Signs:
Vital Signs
Temp Pulse Resp BP Pulse Ox
97.3 F 83 16 104/73 98
08/24/24 07:00 08/24/24 11:18 08/24/24 11:18 08/24/24 11:18 08/24/24 11:18
I&O
08/23/24 08/24/24 08/25/24
06:59 06:59 06:59
Intake Total 2049 600 / 600
Balance 2049 600 / 600
Review of Systems
-
Respiratory: Denies Trouble Breathing
Cardiac: Denies Chest Pain
Neuro: Denies Dizzy
Physical Exam
-
General: No Apparent Distress
HEENT: Moist Mucous Membranes
Respiratory: Clear to Auscultation
Cardiac: Regular Rhythm and S1/S2; Negative Tachycardic
GI: Soft and Nontender
Genito-urinary: No Costovertebral Tender
Neuro: AO x 3
Psych: Calm
[2024-08-24] MEDS: NOVOLOG FLEXPEN-LOW RESISTANCE 4 UNITS SC (12:52)
--- NOTE | 2024-08-24 13:02 | PTCARENOTE ---
MD made aware of Hr dipping into 35s for short period then later in shift went up to 122 for a minute. No new orders. DC as planned PT is currently sitting oob into chair eating lunch. call lyons in side and patient agreed to call me if she needed
anything
[2024-08-24 15:05] VITALS: BP 104/71
--- NOTE | 2024-08-24 15:23 | PTCARENOTE ---
pt with multiple bruises noted on bilateral cazares at different stages of healing. PT with visible very dark bruise in top mid lip. Pt lives in [facility] independent with minimal supervision. CT scan results noted, PT was incontinent of large
amount of urine sacrum has a large MASD stage 1 pressure injury skin non blanchable, macerated. I asked pt if she has fallen recently she stated she falls alot when she is on her trampoline at home. PT thinks she is 18 and lives with her mom. When
I reorient her she remembers she lives in [facility] and that a trial court judge oversees her care. She admits her mom has not seen her for over a year and has not seen her father in along while. I asked pt if she goes to the bathroom on her own. She says yes
but has been doing it lately. she sits in it becuase 'im lazy.' I did assess her ambulation. with supervision and good amount of cue were required to get her oob to stand. She was able to walk independently with supervision and walker.
--- NOTE | 2024-08-24 16:01 | W.DCSUMMARY ---
Discharge Summary
Discharge Data
Date of Admission: 08/21/24
Date of Discharge: 08/24/24
-
Pending Results: No
Hospital Course
Primary diagnosis:
Acute toxic metabolic encephalopathy
Complicated UTI with bacteremic E. coli bacteremia
Recent bilateral ureteral stent placement
Acute kidney injury
Nonobstructive nephrolithiasis
Dehydration
Hyperkalemia
Bradycardia with occasional pauses
Clinical concern of obstructive sleep apnea
Secondary diagnosis:
History of brain tumor removal with HEARING AID REPAIR TECHNICIAN shunt in place for hydrocephalus
Chronic microcytic anemia
Orthostatic hypotension
Bipolar depression
Diabetes mellitus type 2
Seizure disorder
Hypopituitarism on replacement therapy
Hospital course:
33-year-old female lives in a traumatic brain injury facility locally was sent in because she was not her usual self, more tired, and also chest pain. She was recently hospitalized that [facility] for what looks like kidney stones
and had bilateral ureteral stent placed. Unclear if the bilateral stents were replaced. Scheduled to see [facility] urology for bilateral stent exchange 2.
There was no clinical evidence of AL.
She was noted to be in toxic metabolic encephalopathy from infection which resolved upon treatments. She also had bacteremic E. coli from a urinary source. She was seen by both ID and urologist. She was initiated initially on ceftriaxone and once
clinically stable was switched to cefdinir and the recommendation was the continue for 2 weeks as could not rule out pyelonephritis. Urology recommends follow-up with the primary urologist upon discharge. This was communicated to her guardian team.
She also had acute kidney injury with a creatinine 1.6 which normalized as well as her hyponatremia was not normalized with fluid support.
While she was here she had some bradycardia episodes with occasional pauses not significant. This apparently was also noted by cardiology at [facility] and had no indications of interventions. We did see deep sleep with his
occasional apneic episodes which could be contributing and advised to get official sleep study.
She was maintained on her home medication regimen for above conditions without any changes.
Consultants on board:
ID-Frank Nowak
Urology-Mason Wisdom
Discharge Plan
-
Patient Disposition: Other
Discharge Diagnosis/Procedures: TME, complicated UTI, bilateral ureteral stent in place, SOCORRO, nonobstructive nephrolithiasis, dehydration
Diet: Regular
Activity: As tolerated
Driving Restrictions: No driving
Bathing Restrictions: None
Activity Restrictions/Additional Instructions:
Please follow with your urologist at [facility] for follow up on stents
Referrals:
PRIVATE,PHYSICIAN [Family Provider] -
Michael Borrego MD [Active] - in two to four weeks (For sleep study -call to get an appointment)
Prescriptions:
New
cefdinir 300 mg capsule
300 mg PO BID Qty: 28 0RF
Rx Instructions:
for 2 weeks given pyelonephritis
oseltamivir 75 mg Capsule
75 mg PO BID Qty: 1 0RF
Rx Instructions:
for 3 more days
Continued
levetiracetam 500 MG tablet
1,000 mg PO BID
prednisone 5 MG tablet
5 mg PO DAILY
gabapentin 300 MG capsule
300 mg PO TID@0800,1300,2000
oxybutynin chloride 5 MG tablet
5 mg PO BID
cholecalciferol (vitamin D3) 1,000 UNITS tablet
1,000 units PO DAILY
magnesium oxide 400 MG capsule
400 mg PO QID
riboflavin (vitamin B2) 400 MG tablet
400 mg PO DAILY
acetaminophen 325 MG tablet
650 mg PO Q4HPRN PRN (Reason: mild pain,fever)
loperamide 2 MG capsule
2 mg PO DAILYPRN PRN (Reason: diarrhea )
metformin 500 mg tablet
1,000 mg PO BID@0800,1700
atorvastatin 20 mg tablet
20 mg PO HS
trazodone 50 mg tablet
50 mg PO HS
miconazole nitrate 2 % Cream
1 applic TOPICAL DAILY
famotidine 40 mg Tablet
40 mg PO HS
psyllium Packet
1 packet PO DAILYPRN PRN (Reason: constipation )
sertraline 100 mg tablet
100 mg PO DAILY
midodrine 5 mg tablet
10 mg PO TID@0800,1300,1700
cyanocobalamin (vitamin B-12) [Vitamin B-12] 1,000 mcg tablet
1,000 mcg PO DAILY
levothyroxine 100 mcg tablet
100 mcg PO DAILY@0700
docusate sodium 100 mg Capsule
100 mg PO [id number] PRN (Reason: constipation )
folic acid 1 mg tablet
1 mg PO DAILY
nystatin [Nyamyc] 100,000 unit/gram powder
1 applic TOPICAL TIDPRN PRN (Reason: rash)
ondansetron 4 mg tablet,disintegrating
4 mg PO Q8HPRN PRN (Reason: nausea/vomiting )
trolamine salicylate [Aspercreme] 10 % Cream
1 applic TOPICAL BID
buspirone 15 mg tablet
7.5 mg PO BID
zinc oxide Ointment
1 applic TOPICAL QID@08,12,17,20
ferrous gluconate 324 mg (38 mg iron) tablet
324 mg PO BID@0800,1700
omega 9-ewl-mao-fish oil [Fish Oil] 1,000 mg (120 mg-180 mg) Capsule
1 cap PO TID@0800,1300,2000
Azo Cranberry Plus Probiotic 250-30-15 mg Tablet
1 tab PO DAILY
lorazepam 0.5 MG tablet
0.5 mg PO Q8HPRN PRN (Reason: anxiety)
dextromethorphan-guaifenesin 10-100 mg/5 mL Liquid
10 ml PO Q4HPRN PRN (Reason: cough)
sumatriptan succinate 50 mg Tablet
50 mg PO DAILYPRN PRN (Reason: migraine)
risperidone 0.5 mg Tablet
0.5 mg PO HS
desmopressin 0.1 mg Tablet
0.1 mg PO BID
Discontinued
acetaminophen 500 mg Tablet
1,000 mg PO DAILY
Discharge Orders:
Discharge Patient (As Directed); Ordered 08/24/24
Ordered By: Nicholas Parks
Discharge Date and Time
Print Language: WOLOF
[2024-08-24] MEDS: STERILE WATER FOR INJECTION 20 ML IV (16:45)
[2024-08-24] MEDS: ROCEPHIN 2000 MG IV (16:45)
[2024-08-24 16:49] LABS: Glucose - Point of Care 194 mg/dl (70-99)
[2024-08-24] MEDS: NOVOLOG FLEXPEN-LOW RESISTANCE 1 UNITS SC (16:50)
[2024-08-24 19:35] VITALS: BP 118/25
[2024-08-24] MEDS: DESENEX/MITRAZOL/ZEASORB 1 APPLIC TOPICAL (20:14)
[2024-08-24 21:39] LABS: Glucose - Point of Care 226 mg/dl (70-99)
[2024-08-24] MEDS: PEPCID 40 MG PO (22:32)
[2024-08-24] MEDS: LIPITOR 20 MG PO (22:32)
[2024-08-24] MEDS: RISPERDAL 0.5 MG PO (22:32)
[2024-08-24] MEDS: DESYREL 50 MG PO (22:32)
[2024-08-24 23:11] VITALS: BP 104/70
[2024-08-25] VITALS (8 sets, daily range): BP systolic 95–124; BP diastolic 56–80; PULSE 78–150; O2SAT 98; BMI 33.6
[2024-08-25] MEDS: SYNTHROID 100 MCG PO (06:18)
[2024-08-25 07:59] LABS: Glucose - Point of Care 123 mg/dl (70-99)
--- NOTE | 2024-08-25 09:31 | W.PN.HOSP.TC ---
Today's Communication/Plan
-
PT eval
DC
Assessment / Plan
Assessment / Plan
Acute TME-suspect secondary to infectious process-unknown baseline but patient is improved since admission.
Complicated UTI with the bacteremic E. coli and bilateral ureteral stents in place-Afebrile. Blood pressure is stable. Appreciate ID input - abx switched to Cefdinir for 2 weeks on DC. Urology advises to return back to primary urologist.
Bilateral Ureteral Stents-urology input noted - return back to primary urologist
SOCORRO-suspect prerenal-resolved
Nephrolithiasis-nonobstructive
Dehydration / Hypernatremia-normalized
Chronic Macrocytic Anemia-H&H stable
Hydrocephalus Brain Tumor with GROUNDS RESTORATION SPECIALIST Shunt-continue with her home antiepileptics
Intracerebral Fluid Collections - ? Etiology / Acuity- Neurosurgery notes that they are chronic / seen on prior imaging.
GROUNDS RESTORATION SPECIALIST Shunt in place and no evidence of shunt malfunction, acute bleed, etc.
Formal Neurosurgery evaluation for any additional recommendations but did not see. With above recs of NSG and no clinical changes will hold on consult.
Intermittent sinus pauses with bradcardia - no HD instability or sypmtoms. Review of cardiology input from [facility] noted -they did not recommend any interventions. Not on ema blocking agents. Based on her sleep pattern eval for
THANG . Follow with sleep doc for sleep study.
Bipolar Depression-continue the home medication
Orthostatic hypotension-continue with the midodrine
DM-II-hold metformin and continue with sliding scale insulin
Seizure Disorder-continue with home antiepileptic
Hypopituitarism-Continue usual med regimen in regards to hypopituitarism / hormone replacements / etc.
Stress dose steroids if any evidence of hypotension / hemodynamic instability.
Full code
PT to eval today again and if ok will dc her back to her facility
Anticipated Discharge: Today
Subjective/Interval History
-
Date of Service: August 25, 2024
Patient awake and alert. She not oriented to place, month of the year.
She says she is feeling okay and not voicing any specific complaints.
Denies any sore throat, cough or shortness of breath. Good appetite.
Denies any abdominal pain.
RN has noted that to be a bit more weaker today. Needing bit more help with activity.
Objective Data
-
Vital Signs:
Vital Signs
Temp Pulse Resp BP Pulse Ox
97.8 F 75 18 110/79 96
08/25/24 07:34 08/25/24 07:34 08/25/24 07:34 08/25/24 07:34 08/25/24 07:34
I&O
08/24/24 08/25/24 08/26/24
06:59 06:59 06:59
Intake Total 600 / 600 720 / 720
Balance 600 / 600 720 / 720
Review of Systems
-
Constitutional: Denies Fever
EENT: Denies Sore Throat
Respiratory: Denies Cough or Trouble Breathing
Cardiac: Denies Chest Pain
Abdomen/GI: Denies Abdominal Pain, Nausea or Vomiting
Neuro: Denies Dizzy or Headache
Physical Exam
-
General: No Apparent Distress
Respiratory: Clear to Auscultation and Non Labored Respirations; Negative Accessory Resp Muscle Use
Cardiac: Regular Rhythm and S1/S2; Negative Tachycardic
GI: Soft and Nontender
Neuro: Awake, Alert and Oriented (self and person)
[2024-08-25] MEDS: NEURONTIN 300 MG PO ×3 (10:12→20:40)
[2024-08-25] MEDS: ProAmatine 10 MG PO ×3 (10:12→16:51)
[2024-08-25] MEDS: KEPPRA 1000 MG PO ×2 (10:12→20:40)
[2024-08-25] MEDS: FOLVITE 1 MG PO (10:13)
[2024-08-25] MEDS: TAMIFLU 75 MG PO ×2 (10:13→20:43)
[2024-08-25] MEDS: ZOLOFT 100 MG PO (10:13)
[2024-08-25] MEDS: DDAVP 0.1 MG PO ×2 (10:13→20:40)
[2024-08-25] MEDS: DESENEX/MITRAZOL/ZEASORB 1 APPLIC TOPICAL ×2 (10:13→20:40)
[2024-08-25] MEDS: DELTASONE 5 MG PO (10:13)
[2024-08-25] MEDS: NOVOLOG FLEXPEN-LOW RESISTANCE SC (10:14)
--- NOTE | 2024-08-25 11:50 | PTCARENOTE ---
HR 150 with standing. asymptomatic. PT needs more than cues with all ADLs. she requires one assist to open all food on tray and verbal cues. She also needs someone to have hands on assist to start and finish activities
[2024-08-25 13:15] LABS: Glucose - Point of Care 315 mg/dl (70-99)
[2024-08-25] MEDS: NOVOLOG FLEXPEN-LOW RESISTANCE 4 UNITS SC (13:18)
--- NOTE | 2024-08-25 15:11 | CM ---
Received notification from RN that patient is medically stable for discharge. Placed a call to [facility] and spoke with an RN named, Deanna, who stated that the DON, Meera, is there Monday through Monday therefore they would not be
able to take patient back on a Monday. Deanna stated that in the past, she has needed rehab and has gone to [place] in [facility].
Will talk to DON tomorrow to determine discharge.
Plan: Case management will continue to follow and assist with discharge planning. Back to residential vrs. SNF.
[2024-08-25 16:50] LABS: Glucose - Point of Care 252 mg/dl (70-99)
[2024-08-25] MEDS: NOVOLOG FLEXPEN-LOW RESISTANCE 3 UNITS SC (16:51)
[2024-08-25 20:40] LABS: Glucose - Point of Care 219 mg/dl (70-99)
[2024-08-25] MEDS: OMNICEF 300 MG PO (20:40)
[2024-08-25] MEDS: LIPITOR 20 MG PO (20:43)
[2024-08-25] MEDS: PEPCID 40 MG PO (20:43)
[2024-08-25] MEDS: DESYREL 50 MG PO (21:32)
[2024-08-25] MEDS: RISPERDAL 0.5 MG PO (21:32)
[2024-08-26 03:00] VITALS: BP 101/63
[2024-08-26] MEDS: SYNTHROID 100 MCG PO (05:34)
[2024-08-26 05:49] VITALS: BMI 34.0
[2024-08-26 07:15] VITALS: BP 108/71
[2024-08-26 07:34] LABS: Glucose - Point of Care 107 mg/dl (70-99)
[2024-08-26] MEDS: OMNICEF 300 MG PO ×2 (07:36→19:51)
[2024-08-26] MEDS: DDAVP 0.1 MG PO ×2 (07:36→19:51)
[2024-08-26] MEDS: ProAmatine 10 MG PO ×3 (07:36→16:52)
[2024-08-26] MEDS: TAMIFLU 75 MG PO ×2 (07:36→19:54)
[2024-08-26] MEDS: KEPPRA 1000 MG PO ×2 (07:36→19:51)
[2024-08-26] MEDS: NEURONTIN 300 MG PO ×3 (07:36→19:51)
[2024-08-26] MEDS: NOVOLOG FLEXPEN-LOW RESISTANCE SC ×2 (07:36→12:05)
[2024-08-26] MEDS: FOLVITE 1 MG PO (07:36)
[2024-08-26] MEDS: DELTASONE 5 MG PO (07:36)
[2024-08-26] MEDS: ZOLOFT 100 MG PO (07:36)
[2024-08-26] MEDS: DESENEX/MITRAZOL/ZEASORB 1 APPLIC TOPICAL ×2 (07:37→19:52)
--- NOTE | 2024-08-26 09:48 | W.PN.HOSP.TC ---
Today's Communication/Plan
-
DC
Assessment / Plan
Assessment / Plan
Acute TME-suspect secondary to infectious process-unknown baseline but patient is improved since admission.
Complicated UTI with the bacteremic E. coli and bilateral ureteral stents in place-Afebrile. Blood pressure is stable. Appreciate ID input - abx switched to Cefdinir for 2 weeks on DC. Urology advises to return back to primary urologist.
Bilateral Ureteral Stents-urology input noted - return back to primary urologist
SOCORRO-suspect prerenal-resolved
Nephrolithiasis-nonobstructive
Dehydration / Hypernatremia-normalized
Chronic Macrocytic Anemia-H&H stable
Hydrocephalus Brain Tumor with ROAST MASTER Shunt-continue with her home antiepileptics
Intracerebral Fluid Collections - ? Etiology / Acuity- Neurosurgery notes that they are chronic / seen on prior imaging.
ROAST MASTER Shunt in place and no evidence of shunt malfunction, acute bleed, etc.
Formal Neurosurgery evaluation for any additional recommendations but did not see. With above recs of NSG and no clinical changes will hold on consult.
Intermittent sinus pauses with bradcardia - no HD instability or sypmtoms. Review of cardiology input from [facility] noted -they did not recommend any interventions. Not on ema blocking agents. Based on her sleep pattern eval for
THANG . Follow with sleep doc for sleep study.
Bipolar Depression-continue the home medication
Orthostatic hypotension-continue with the midodrine
DM-II-hold metformin and continue with sliding scale insulin
Seizure Disorder-continue with home antiepileptic
Hypopituitarism-Continue usual med regimen in regards to hypopituitarism / hormone replacements / etc.
Stress dose steroids if any evidence of hypotension / hemodynamic instability.
Full code
Medically stable for discharge to facility today
Total time of discharge 32 minutes
Anticipated Discharge: Today
Subjective/Interval History
-
Date of Service: August 26, 2024
No overnight events.
Patient worked with the PT and recommendations were that she could return to her facility
Objective Data
-
Vital Signs:
Vital Signs
Temp Pulse Resp BP Pulse Ox
98.1 F 59 16 108/71 96
08/26/24 07:15 08/26/24 07:15 08/26/24 07:15 08/26/24 07:15 08/26/24 07:15
I&O
08/25/24 08/26/24 08/27/24
06:59 06:59 06:59
Intake Total 720 / 720
Balance 720 / 720
Review of Systems
-
Respiratory: Denies Trouble Breathing
Cardiac: Denies Chest Pain
Abdomen/GI: Denies Abdominal Pain, Nausea or Vomiting
Physical Exam
-
General: Comfortable
Respiratory: Non Labored Respirations; Negative Accessory Resp Muscle Use
Cardiac: Regular Rhythm and S1/S2
GI: Soft and Nontender
Neuro: Awake, Alert and Oriented (Self)
Psych: Calm
--- NOTE | 2024-08-26 10:00 | WOUNDNOTE ---
SHEA RN NOTE: Spoke with nurse Shaun who confirmed mild MASD on sacrum, no need for wound consult per nurse.
[2024-08-26 11:17] VITALS: BP 117/75
[2024-08-26 11:39] LABS: Glucose - Point of Care 133 mg/dl (70-99)
--- NOTE | 2024-08-26 14:06 | CON.CAR ---
Addendum entered and electronically signed by Rj Monzon MD 08/26/24 15:06:
Pleasant 33-year-old woman admitted August 21 with urosepsis with E. coli bacteremia and toxic metabolic encephalopathy, now with bilateral ureteral stents. We are asked to review regarding bradycardia and periods of sinus tachycardia. Plans for
discharge later today. She says that she is occasionally very vaguely lightheaded no palpitations, overall asymptomatic
PMH: Hydrocephalus and PAINTER AND DECORATOR APPRENTICE shunt, bipolar, orthostatic, diabetic, seizure disorder, panhypopituitary. Renal calculi status post ureteral stents. History of DVT. Suspected obstructive sleep apnea.
Current meds:Atorvastatin 20 mg a day, DDAVP 0.1 mg twice daily, Pepcid 40 mg a day, folic acid, Neurontin 300 3 times daily, Keppra 1000 twice daily, Synthroid 100 mcg daily, midodrine 10 mg 3 times daily, prednisone 5 mg a day, Risperdal,
sertraline, trazodone, Tamiflu, Omnicef
117/75, pulse 50, respiratory rate 16, afebrile, sats 96% influenza A, conversant, sitting in chair, no acute distress, and exam grossly unremarkable lungs are clear regular rate and rhythm without murmurs or gallops abdomen benign extremities
without significant edema and pulses intact, neuro not examined in detail
Hemoglobin was 9.2 on the , BUN and creatinine 16 and 0.8
Echocardiogram from [place] June 2024: Essentially normal
Telemetry: Periods of sinus tachycardia and also sinus rhythm/bradycardia, no arrhythmia identified
Impression:
Orthostatic hypotension
Asymptomatic sick sinus syndrome
Right bundle branch block left anterior fascicular block
Cognitive impairment, seizure disorder, history of craniotomy with SECTION LEADER tumor, hydrocephalus with PAINTER AND DECORATOR APPRENTICE shunt, renal calculi with ureteral stents, diabetes, distal DVTs 2021, depression/anxiety
Plan:
She has a symptomatic sick sinus syndrome.
Midodrine could be making her bradycardia worse but blood pressure is currently acceptable and I would be reluctant to reduce midodrine.
At this time would not recommend any changes. Although she has bifascicular heart block, telemetry has been unrevealing. No evidence of second-degree heart block. I do not think she needs a monitor or a repeat echo.
Should continue conservative strategy okay for discharge from cardiac standpoint.
Please call if issues.
Original Note:
Consultation
Consultation Request
Date/Time Consultation Requested: 08/26/2024, 1058
Date/Time Consultation Performed: 08/26/2024, 1330
Requesting Provider: Nicholas Parks MD
Performing Provider: SHAYLA Tamayo for Rj Monzon MD
Reason for Consultation: tachybrady syndrome
Medical History
-
Chief Complaint: chest pain
History of Present Illness:
33-year-old female with history of intellectual disability, seizure disorder, brain tumor,, craniotomy, hydrocephalus status post PAINTER AND DECORATOR APPRENTICE shunt, bradycardia, orthostatic hypotension, hypothermia, diabetes mellitus, bilateral lower extremity DVTs, recent
hospitalization 06/2024 at [facility] for kidney stones with stent placement who presented to ED from her longterm on 08/21/2024 with chest pain and altered mental status. She was found to have a complicated UTI and has been
treated with antibiotics with ID and urology following. Her acute metabolic encephalopathy was thought to be secondary to infectious process. Troponin was negative x 4 and patient denied further chest pain.
She was noted to have sinus bradycardia on telemetry with heart rates in the 30s as well as times when she is in sinus tachycardia with heart rates in the 120s. We are consulted for evaluation of tachybrady syndrome.
Patient denies palpitations, syncope. Says she falls a lot due to being clumsy. Occasionally feels dizziness when walking, no falls due to dizziness. No shortness of breath, PND, orthopnea.
Labs 08/22/2024: TSH 0.7, Mag 2.1
08/23/2024: Na 140, K 3.8, BUN/creat 16/0.8, Ca 8.4
Patient has been followed by Dr. Franklin in the past for history of bradycardia, and shortness of breath. She had multiple hospitalizations for hypothermia in the past at which time she was noted to be bradycardic. No indication for pacemaker.
Echo 11/2018 EF 60%.
Past medical history:
Bradycardia
Orthostatic hypotension
Hypothermia
Intellectual disability
Seizure disorder
Brain tumor status postcraniotomy
Hydrocephalus status post PAINTER AND DECORATOR APPRENTICE shunt
UTI
Bilateral ureteral stents
Diabetes mellitus
Bilateral lower extremity DVTs 03/2022
Depression
anxiety
Past Medical History
Past Medical History: Other (As above)
Past Surgical History: Other (As above)
Social History
Tobacco: Non-Smoker
Alcohol: None
Drug: None
Personal: Single
Living: Shelter (snf)
Allergies / Home Medications
Allergy/AdvReac Type Severity Reaction Status Date / Time
No Known Allergies Allergy Verified 08/21/24 12:18
�Medication �Instructions �Recorded �Confirmed �Type
cholecalciferol (vitamin D3) 25 1,000 units PO DAILY Supplement 10/18/18 08/21/24 History
mcg (1,000 unit) tablet
gabapentin 300 mg capsule 300 mg PO TID@0800,1300,2000 10/18/18 08/21/24 History
Seizures
levetiracetam 500 mg tablet 1,000 mg PO BID Seizures 10/18/18 08/21/24 History
oxybutynin chloride 5 mg tablet 5 mg PO BID Urinary issue 10/18/18 08/21/24 History
prednisone 5 mg tablet 5 mg PO DAILY hypopituitarism 10/18/18 08/21/24 History
magnesium oxide 400 mg PO QID Supplement 12/17/18 08/21/24 History
riboflavin (vitamin B2) 400 mg 400 mg PO DAILY Supplement 12/17/18 08/21/24 History
tablet
acetaminophen 325 mg tablet 650 mg PO Q4HPRN PRN mild 01/25/19 08/21/24 History
pain,fever
loperamide 2 mg capsule 2 mg PO DAILYPRN PRN diarrhea 01/25/19 08/21/24 History
atorvastatin 20 mg tablet 20 mg PO HS High Cholesterol 10/02/23 08/21/24 History
buspirone 15 mg tablet 7.5 mg PO BID anxiety 10/02/23 08/21/24 History
cranberry ioms-H-mrasiuqq 1 tab PO DAILY UTI Prevention 10/02/23 08/21/24 History
coagulans 250 mg-30 mg-15 mg
tablet (Azo Cranberry Plus
Probiotic)
cyanocobalamin (vitamin B-12) 1,000 mcg PO DAILY vit B12 10/02/23 08/21/24 History
1,000 mcg tablet (Vitamin B-12) deficiency
dextromethorphan-guaifenesin 10 10 ml PO Q4HPRN PRN cough 10/02/23 08/21/24 History
mg-100 mg/5 mL oral liquid
docusate sodium 100 mg capsule 100 mg PO [id number] PRN constipation 10/02/23 08/21/24 History
famotidine 40 mg tablet 40 mg PO HS GERD 10/02/23 08/21/24 History
ferrous gluconate 324 mg (38 mg 324 mg PO BID@0800,1700 Supplement 10/02/23 08/21/24 History
iron) tablet
folic acid 1 mg tablet 1 mg PO DAILY Supplement 10/02/23 08/21/24 History
levothyroxine 100 mcg tablet 100 mcg PO DAILY@0700 10/02/23 08/21/24 History
hypothyroidism
lorazepam 0.5 mg tablet 0.5 mg PO Q8HPRN PRN anxiety 10/02/23 08/21/24 History
metformin 500 mg tablet 1,000 mg PO BID@0800,1700 diabetes 10/02/23 08/21/24 History
miconazole nitrate 2 % topical 1 applic topical DAILY bilateral 10/02/23 08/21/24 History
cream groin for fungal rash
midodrine 5 mg tablet 10 mg PO TID@0800,1300,1700 low 10/02/23 08/21/24 History
blood pressure
nystatin 100,000 unit/gram topical 1 applic topical TIDPRN PRN rash 10/02/23 08/21/24 History
powder (Nyamyc)
omega 3-ugc-rwm-fish oil 1,000 mg 1 cap PO TID@0800,1300,2000 10/02/23 08/21/24 History
(120 mg-180 mg) capsule (Fish Oil) Supplement
ondansetron 4 mg disintegrating 4 mg PO Q8HPRN PRN nausea/vomiting 10/02/23 08/21/24 History
tablet
psyllium 1 packet PO DAILYPRN PRN 10/02/23 08/21/24 History
constipation
sertraline 100 mg tablet 100 mg PO DAILY depression 10/02/23 08/21/24 History
trazodone 50 mg tablet 50 mg PO HS insomnia 10/02/23 08/21/24 History
trolamine salicylate 10 % topical 1 applic topical BID knee pain 10/02/23 08/21/24 History
cream (Aspercreme)
zinc oxide 1 applic topical QID@08,12,17,20 10/02/23 08/21/24 History
to buttocks after ech toileting
desmopressin 0.1 mg tablet 0.1 mg PO BID 08/21/24 08/21/24 History
risperidone 0.5 mg tablet 0.5 mg PO HS 08/21/24 08/21/24 History
sumatriptan succinate 50 mg tablet 50 mg PO DAILYPRN PRN migraine 08/21/24 08/21/24 History
cefdinir 300 mg capsule 300 mg PO BID #28 caps 08/24/24 Rx
oseltamivir 75 mg capsule 75 mg PO BID #1 cap 08/24/24 Rx
Review of Systems
-
History Source: Patient
All other systems: Negative unless noted
Physical Exam
Vital Signs
Temp Pulse Resp BP Pulse Ox
98.1 F 50 16 117/75 96
08/26/24 07:15 08/26/24 11:17 08/26/24 11:17 08/26/24 11:17 08/26/24 11:17
Lab Results
08/23/24 06:27
08/23/24 06:27
Troponin I < 0.012 ng/ml 08/22/24 06:11
GEN: No distress, awake, Ox3
HEENT: supple, anicteric, mmm
LUNGS: CTA, no wheezes/rales
CV: Reg, S1/S2, /6 syst LSB, no murmur
ABD: soft, BS+, NT/ND
EXT: Trace bilateral lower extremity edema. Wounds on bilateral LEs w/ dressings
NEURO: Gross non-focal
SKIN: No rash
Impression / Plan
-
PCP: Arnav Cheung
Primary cloth printing utility worker: Dr. Franklin
Impression:
Sinus bradycardia
Sinus tachycardia
Orthostatic hypotension
UTI
Hydrocephalus brain tumor with PAINTER AND DECORATOR APPRENTICE shunt
Diabetes, type II
Seizure disorder
Previous cardiovascular testing:
echocardiogram 12/03/2018: Normal LV size and function, EF 55 to 60%
Echocardiogram from [facility] 06/28/2024: Normal LV size, function, no wall motion abnormalities, EF 60 to 65%, normal LV diastolic function, normal RV size and function normal atria, no significant valvular heart disease
EKG today 08/26/2024: sinus bradycardia, 46 bpm, right bundle branch block, left anterior fascicular block nonspecific T wave abnormality
Plan:
33-year-old female with history of intellectual disability, seizure disorder, brain tumor,, craniotomy, hydrocephalus status post PAINTER AND DECORATOR APPRENTICE shunt, bradycardia, orthostatic hypotension, hypothermia, diabetes mellitus, bilateral lower extremity DVTs, recent
hospitalization 06/2024 at [facility] for kidney stones with stent placement who presented to ED from her longterm on 08/21/2024 with chest pain and altered mental status. She was found to have a complicated UTI and has been
treated with antibiotics with improvement in mental status. Her acute metabolic encephalopathy was thought to be secondary to infectious process. Troponin was negative x 4 and patient denied further chest pain.
Noted to have sinus bradycardia on telemetry with heart rates in the 30s as well as times when she is in sinus tachycardia with heart rates in the 120s. We are consulted for evaluation of tachybrady syndrome, prior to discharge.
-Echo 06/2024 showed structurally normal heart
-She is not on any AV ema blocking agents
-When I evaluated her she had just gone on a walk and heart rate appropriately faisal to 110s to 120s, sinus tachycardia
-No evidence of advanced heart block, but she could be at risk for this in the future given her bifascicular block on EKG
-EKG today compared to previous EKG 08/2023 from outpatient cardiology evaluation and is stable
-Patient denies palpitations, syncope.
-Electrolytes, TSH WNL
-on Midodrine for orthostatic hypotension. BPs 101-124/60s-70s. This medication can cause bradycardia. Could consider decreasing the dose
Data Reviewed
-
EKG: Tracing Personally Visualized and interpreted
Labs: Labs Reviewed by me
--- NOTE | 2024-08-26 14:48 | CM ---
Addendum entered by LORRIE Lerma 08/26/24 16:25:
Placed another call to TANG at [facility] however had to leave a voice mail again. Requested return call and provided CM contact information again.
Addendum entered by LORRIE Lerma 08/26/24 15:55:
Received call from Elaine at [facility] who stated that she can resume care. She stated to fax d/c instructions to [phone].
Original Note:
Placed a call to Lindsay BECKWITH at [facility], x 110 to update that patient is medically stable for discharge. Reviewed PT. Lindsay stated that she was concerned that patient became Tachy during ambulation during
previous PT session and was only able to ambulate 10 ft.
Spoke with attending who stated that he would refer to Cardiology.
Spoke with RN. Cardiology/attending cleared patient.
PT/OT indication is for return to residential setting.
Placed another call to Lindsay to update that patient will return back today as she is at baseline in every way however had to leave a voice mail message. Requested return call and advised of CM cell phone number.
Completed Medical necessity and transfer sheet for [facility] to arrange for transportation.
Will need to hear back from TANG Montoya to get # for report and fax#.
Plan: Case management will continue to follow and assist with discharge planning. Back to facility.
[2024-08-26 15:00] VITALS: BP 105/66
[2024-08-26 16:35] LABS: Glucose - Point of Care 224 mg/dl (70-99)
[2024-08-26] MEDS: NOVOLOG FLEXPEN-LOW RESISTANCE 2 UNITS SC (16:52)
[2024-08-26 19:30] VITALS: BP 177/92
[2024-08-26] MEDS: DESYREL 50 MG PO (21:48)
[2024-08-26] MEDS: LIPITOR 20 MG PO (21:48)
[2024-08-26] MEDS: PEPCID 40 MG PO (21:48)
[2024-08-26] MEDS: RISPERDAL 0.5 MG PO (21:49)
[2024-08-26 21:50] LABS: Glucose - Point of Care 287 mg/dl (70-99)
[2024-08-26 23:00] VITALS: BP 109/77
[2024-08-27 06:00] VITALS: BMI 34.0
[2024-08-27] MEDS: SYNTHROID 100 MCG PO (07:00)
[2024-08-27 07:37] VITALS: BP 111/77
[2024-08-27 07:53] LABS: Glucose - Point of Care 120 mg/dl (70-99)
[2024-08-27] MEDS: NOVOLOG FLEXPEN-LOW RESISTANCE SC (09:20)
[2024-08-27] MEDS: NEURONTIN 300 MG PO ×3 (09:21→19:53)
[2024-08-27] MEDS: TAMIFLU 75 MG PO (09:21)
[2024-08-27] MEDS: DDAVP 0.1 MG PO ×2 (09:22→19:54)
[2024-08-27] MEDS: KEPPRA 1000 MG PO ×2 (09:22→19:53)
[2024-08-27] MEDS: ZOLOFT 100 MG PO (09:22)
[2024-08-27] MEDS: DELTASONE 5 MG PO (09:22)
[2024-08-27] MEDS: FOLVITE 1 MG PO (09:22)
[2024-08-27] MEDS: OMNICEF 300 MG PO ×2 (09:22→19:54)
[2024-08-27] MEDS: ProAmatine 10 MG PO ×3 (09:23→17:51)
[2024-08-27] MEDS: DESENEX/MITRAZOL/ZEASORB 1 APPLIC TOPICAL ×2 (09:24→19:54)
[2024-08-27] MEDS: TYLENOL 650 MG PO (09:26)
[2024-08-27 10:48] VITALS: BP 101/60
--- NOTE | 2024-08-27 10:49 | CM ---
Addendum entered by Allyson Diallo [facility] 08/27/24 15:47:
Maeve's phone # [phone] ext [phone].
To clarify below: Staff at patient's facility not in agreement with Carrier Packer's assessment that patient is medically stable as they stated patient never had any cardiac concerns.
Addendum entered by Allyson Diallo [facility] 08/27/24 15:22:
All information was faxed x2 to facility.
Placed a call to Deanna however had to leave a message.
Received a return call back from an RN named Maeve, who stated that she spoke with the DON and they do not feel that patient is medically stable enough for them to accept back.
Will consult director.
Addendum entered by Allyson Diallo [facility] 08/27/24 14:25:
Faxed completed PT eval and Carrier Packer note/amendment to fax number provided by Deanna. Will f/u to confirm receipt and that patient can return today.
Addendum entered by Allyson Diallo [facility] 08/27/24 11:12:
Spoke with PT, PT will see patient today to confirm that patient can ambulate the amount needed for her to be accepted back by facility.
Original Note:
Placed a call to [facility] and spoke with an RN, named Deanna, who stated that she is patient's nurse at the facility. She stated that the DON is off today, however, she left instructions to her regarding what is needed for patient
to be accepted back. She stated that they need a note from Cardiology that patient is cleared and documentation/proof that patient can ambulate at least 100 ft. She stated that this information should be faxed to, .
Deanna stated that her cell# is [phone] and to call early afternoon to get an update regarding acceptance.
Plan: Case management will continue to follow and assist with discharge planning. Back to [facility]. Patient medically stable. Awaiting for facility to take patient back.
[2024-08-27 11:37] LABS: Glucose - Point of Care 177 mg/dl (70-99)
[2024-08-27] MEDS: NOVOLOG FLEXPEN-LOW RESISTANCE 1 UNITS SC ×2 (12:36→17:51)
--- NOTE | 2024-08-27 12:57 | W.PN.URO.CBU ---
Today's Communication / Plan
-
await placement
Assessment / Plan
-
ECOLI bacteremia
bilateral ureteral stents
pt stable
continue course of antibx
discharge when medically stable to f/u with treating urologist for evaluation of stents
Diagnosis
-
Date of Service: August 27, 2024
-
Patient Diagnosis:
Post Op Day:
Patient Diagnosis:
ECOLI UTI/bacteremia
hx of bilateral ureteral stents
Subjective
-
no new gu complaints no fevr chills
Objective
-
Vital Signs
Temp Pulse Resp BP Pulse Ox
98 F 51 16 101/60 100
08/27/24 10:48 08/27/24 10:48 08/27/24 10:48 08/27/24 12:45 08/27/24 10:48
Intake and Output
08/26/24 08/27/24 08/28/24
06:59 06:59 06:59
Intake Total 480 / 480
Balance 480 / 480
Intake:
Oral fluids 480 / 480
Other:
Number of approximated MODERATE 1
amounts of urine
How many times incontinent 1 2
SATURATED amount urine
Laboratory Results
08/23/24 06:27
08/23/24 06:27
Review of Systems
-
: No Symptoms
Physical Exam
-
General - well developed, well nourished, no acute distress
Chest - clear bilaterally
Abdomen - soft, non-tender, positive bowel sounds, no CVAT, no incisional pain or distention
Genitalia - normal
Rectal - normal
Skin - warm & dry with no rash
Neuro - AOx3, no motor deficits
Extremities - no clubbing, no cyanosis, no edema
Incision - clean, dry
Dressing - clean, dry, intact
Care Review
Data Reviewed
Discussed with: Nursing
--- NOTE | 2024-08-27 13:01 | W.PN.HOSP.TC ---
Addendum entered and electronically signed by Nicholas Parks MD 08/27/24 13:11:
Patient was reviewed by cardiology regarding tachycardia probably. Appreciate their input. No interventions recommended.
Original Note:
Today's Communication/Plan
-
DC
Assessment / Plan
Assessment / Plan
Acute TME-suspect secondary to infectious process-unknown baseline but patient is improved since admission.
Complicated UTI with the bacteremic E. coli and bilateral ureteral stents in place-Afebrile. Blood pressure is stable. Appreciate ID input - abx switched to Cefdinir for 2 weeks on DC. Urology advises to return back to primary urologist.
Bilateral Ureteral Stents-urology input noted - return back to primary urologist
SOCORRO-suspect prerenal-resolved
Nephrolithiasis-nonobstructive
Dehydration / Hypernatremia-normalized
Chronic Macrocytic Anemia-H&H stable
Hydrocephalus Brain Tumor with BEAD MAKER Shunt-continue with her home antiepileptics
Intracerebral Fluid Collections - ? Etiology / Acuity- Neurosurgery notes that they are chronic / seen on prior imaging.
BEAD MAKER Shunt in place and no evidence of shunt malfunction, acute bleed, etc.
Formal Neurosurgery evaluation for any additional recommendations but did not see. With above recs of NSG and no clinical changes will hold on consult.
Intermittent sinus pauses with bradcardia - no HD instability or sypmtoms. Review of cardiology input from [facility] noted -they did not recommend any interventions. Not on ema blocking agents. Based on her sleep pattern eval for
THANG . Follow with sleep doc for sleep study.
Bipolar Depression-continue the home medication
Orthostatic hypotension-continue with the midodrine
DM-II-hold metformin and continue with sliding scale insulin
Seizure Disorder-continue with home antiepileptic
Hypopituitarism-Continue usual med regimen in regards to hypopituitarism / hormone replacements / etc.
Stress dose steroids if any evidence of hypotension / hemodynamic instability.
Full code
Remains medically stable for discharge to facility today
Total time of discharge 32 minutes
Anticipated Discharge: Today
Subjective/Interval History
-
Date of Service: August 27, 2024
No new events from yesterday
Pt is pleasant and confused
Voices no specific complaints
Objective Data
-
Vital Signs:
Vital Signs
Temp Pulse Resp BP Pulse Ox
98 F 51 16 101/60 100
08/27/24 10:48 08/27/24 10:48 08/27/24 10:48 08/27/24 12:45 08/27/24 10:48
I&O
08/26/24 08/27/24 08/28/24
06:59 06:59 06:59
Intake Total 480 / 480
Balance 480 / 480
Review of Systems
-
Respiratory: Denies Trouble Breathing
Cardiac: Denies Chest Pain
Abdomen/GI: Denies Abdominal Pain, Nausea or Vomiting
Physical Exam
-
General: Comfortable
Respiratory: Non Labored Respirations; Negative Accessory Resp Muscle Use
GI: Soft and Nontender
Neuro: Awake, Alert and Oriented (self. She thought she was in [facility])
Psych: Calm
--- NOTE | 2024-08-27 14:58 | PTCARENOTE ---
This am, patient c/o left sided headache and was medicated with PRN Tylenol and went to sleep afterwards. Initially she thought she was in a facility in [place], tolerated diet, vss, will continue to monitor.
--- NOTE | 2024-08-27 15:33 | W.PN.ID1 ---
Date of Service
Date of Service: August 27, 2024
Today's Communication
Continue antibiotics.
Assessment / Plan
Influenza A infection
E. coli bacteremia
SOCORRO
Lactic acidosis
Complicated urinary tract infection
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
Bipolar
Depression/anxiety
HTN
DM type II
Seizure disorder
Hypopituitarism
Nephrolithiasis
Diabetes insipidus
Recommendations:
Day 7 of antibiotics in the treatment of recovered E. coli. Complete a 14-day course in total.
Completing course of oseltamavir today.
����������������������������������������������������������
Chief Complaint
-: UTI and Bacteremia
Subjective / Review of Systems
Review of Systems: No Fever and No Chills
Vital Signs / Physical Exam
Vital Signs
Vital Signs
Temp Pulse Resp BP Pulse Ox
98 F 51 16 101/60 100
08/27/24 10:48 08/27/24 10:48 08/27/24 10:48 08/27/24 12:45 08/27/24 10:48
Physical Exam
Constitutional: No Acute Distress, Comfortable, Chronically Ill and Non-toxic
Eyes: No Conjunctival Hemorrhage and Sclera Anicteric
Cardiovascular: S1/S2; Negative S3/S4
Pulmonary: Clear; Negative Wheezes or Rales
Gastrointestinal: Soft, Non Tender and Non Distended
Neurological: Awake and Alert
Psychological: Calm
Objective Data
Lab Data
Lab Results
08/23/24 06:27
08/23/24 06:27
Estimated Creat Clear 117 ml/min 08/23/24 06:27
Lactic Acid 1.0 mmol/L (0.7-2.0) 08/22/24 00:13
Total Bilirubin 0.6 mg/dl (0.2-1.3) 08/21/24 12:41
AST 20 U/L (14-36) 08/21/24 12:41
ALT 18 U/L (0-35) 08/21/24 12:41
Alkaline Phosphatase 63 U/L (38-126) 08/21/24 12:41
Most recent labs reviewed.
Micro Results:
08/21/24 18:12 Blood Culture - Final
Blood/Venous No Growth - Final Report
08/21/24 18:12 Blood Culture - Preliminary
Blood/Venous Escherichia coli
Gram Stain - Preliminary
08/22/24 12:19 MRSA Screen - Final
Nose Staph aureus MRSA
08/21/24 16:46 Urine Culture - Final
Urine Escherichia coli
08/21/24 21:08 Influenza Types A & B (AB) - Final
Nasal Swab Influenza A Positive, NAAT
Imaging:
08/21/2024 CT abdomen/pelvis without contrast: Progressive mild splenomegaly. Bilateral internal double-J nephroureteral stents. Moderate bilateral hydronephrosis. Possibly related to reflux. Cannot exclude stent malfunction/occlusion in the proper
clinical setting. 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 No acute inflammatory changes within the abdomen or pelvis. No bowel obstruction. Left ovarian cyst measuring 2.3 cm.
[2024-08-27 15:49] VITALS: BP 119/83
[2024-08-27 16:40] LABS: Glucose - Point of Care 198 mg/dl (70-99)
--- NOTE | 2024-08-27 16:49 | CM ---
TC to Maeve at [facility]
phone # [phone] ext [phone]
discussed with Maeve why she thought patient could not return to the facility, updated Maeve that patient was medically stable per cardiology and Hospitalist. Updated Maeve that history of bradycardia also document.
Await TCB re return to facility.
[2024-08-27 19:00] VITALS: BP 112/71
[2024-08-27 21:23] LABS: Glucose - Point of Care 160 mg/dl (70-99)
[2024-08-27] MEDS: PEPCID 40 MG PO (21:58)
[2024-08-27] MEDS: DESYREL 50 MG PO (21:58)
[2024-08-27] MEDS: LIPITOR 20 MG PO (21:58)
[2024-08-27] MEDS: RISPERDAL 0.5 MG PO (22:03)
[2024-08-27 23:00] VITALS: BP 101/70
--- NOTE | 2024-08-28 02:08 | DOWNTIME ---
There was a [employer] Client Electrical Maintenance Supervisor Downtime on 08/28/2024 from 0100 to 08/28/2023 at 0205 . Downtime documentation of patient's care, including medication administrations, has been reconciled in the electronic record per guidelines. Refer to the
patient's paper chart under the miscellaneous tab to see printed paper medication records and downtime forms.
[2024-08-28 02:50] VITALS: BP 102/62
[2024-08-28 03:00] VITALS: BP 102/62
[2024-08-28 05:00] VITALS: BMI 33.9
[2024-08-28] MEDS: SYNTHROID 100 MCG PO (05:56)
[2024-08-28 07:28] LABS: Glucose - Point of Care 111 mg/dl (70-99)
[2024-08-28 07:32] VITALS: BP 112/74
[2024-08-28] MEDS: NOVOLOG FLEXPEN-LOW RESISTANCE SC ×2 (09:03→12:03)
[2024-08-28] MEDS: ProAmatine 10 MG PO ×2 (09:04→13:03)
[2024-08-28] MEDS: DDAVP 0.1 MG PO (09:04)
[2024-08-28] MEDS: ZOLOFT 100 MG PO (09:05)
[2024-08-28] MEDS: OMNICEF 300 MG PO (09:05)
[2024-08-28] MEDS: NEURONTIN 300 MG PO ×2 (09:05→13:03)
[2024-08-28] MEDS: KEPPRA 1000 MG PO (09:05)
[2024-08-28] MEDS: DELTASONE 5 MG PO (09:05)
[2024-08-28] MEDS: FOLVITE 1 MG PO (09:05)
[2024-08-28] MEDS: DESENEX/MITRAZOL/ZEASORB 1 APPLIC TOPICAL (09:22)
--- NOTE | 2024-08-28 09:22 | CM ---
Addendum entered by Fiorella Pritchard 08/28/24 09:28:
TCB from Maeve, she discussed with her director and they will accept patient for transfer today.
[facility]
Nursing report: [phone]

Please update facility with tansport time.
Original Note:
TC to Maeve- Media Consultant at [facility]
phone # [phone] ext [phone]
Left VM requesting return call. CM following up about patient returning to the facility today or what the facility needs from us to help facilitate transfer. Await TCB.
--- NOTE | 2024-08-28 10:17 | CM ---
Addendum entered by Sade Valentino 08/28/24 12:22:
Transport time arranged for 1345 this afternoon.
Original Note:
Lindsay is ready for disharge today, returning to [facility]. IMM reviewed via telephone with [employer] guardian, Anisa Davis, who provided verbal consent. Anisa advised she is familiar with the form and declined a
copy.
Plan: Discharge to [facility] today via ambulance
[facility]
Nursing report: [phone]
--- NOTE | 2024-08-28 10:30 | W.PN.HOSP.TC ---
Addendum entered and electronically signed by Nicholas Parks MD 08/31/24 16:50:
Complicated UTI is associated with bilateral ureteral stents.
Original Note:
Today's Communication/Plan
-
DC
Assessment / Plan
Assessment / Plan
Acute TME-suspect secondary to infectious process-unknown baseline but patient is improved since admission.
Complicated UTI with the bacteremic E. coli and bilateral ureteral stents in place-Afebrile. Blood pressure is stable. Appreciate ID input - abx switched to Cefdinir for 2 weeks on DC. Urology advises to return back to primary urologist.
Bilateral Ureteral Stents-urology input noted - return back to primary urologist
SOCORRO-suspect prerenal-resolved
Nephrolithiasis-nonobstructive
Dehydration / Hypernatremia-normalized
Chronic Macrocytic Anemia-H&H stable
Hydrocephalus Brain Tumor with MEDICAL OR SURGICAL INSTRUMENT MAKER Shunt-continue with her home antiepileptics
Intracerebral Fluid Collections - ? Etiology / Acuity- Neurosurgery notes that they are chronic / seen on prior imaging.
MEDICAL OR SURGICAL INSTRUMENT MAKER Shunt in place and no evidence of shunt malfunction, acute bleed, etc.
Formal Neurosurgery evaluation for any additional recommendations but did not see. With above recs of NSG and no clinical changes will hold on consult.
Intermittent sinus pauses with bradcardia - no HD instability or sypmtoms. Review of cardiology input from [facility] noted -they did not recommend any interventions. Not on ema blocking agents. Based on her sleep pattern eval for
THANG . Follow with sleep doc for sleep study.
Reviewed by cardiology here as well who recommends no interventions. Suspicion is for asymptomatic sick sinus syndrome.
Bipolar Depression-continue the home medication
Orthostatic hypotension-continue with the midodrine
DM-II-hold metformin and continue with sliding scale insulin
Seizure Disorder-continue with home antiepileptic
Hypopituitarism-Continue usual med regimen in regards to hypopituitarism / hormone replacements / etc.
Stress dose steroids if any evidence of hypotension / hemodynamic instability.
Full code
Remains medically stable for discharge to facility today
Total time of discharge 32 minutes
Anticipated Discharge: Today
Subjective/Interval History
-
Date of Service: August 28, 2024
No overnight events. Discussed with RN.
Patient is awake and oriented to self and person.
Voicing no specific complaints.
Objective Data
-
Vital Signs:
Vital Signs
Temp Pulse Resp BP Pulse Ox
98.2 F 52 16 112/74 98
08/28/24 07:32 08/28/24 09:04 08/28/24 07:32 08/28/24 09:04 08/28/24 07:32
I&O
08/27/24 08/28/24 08/29/24
06:59 06:59 06:59
Intake Total 480 / 480 1200 / 1200
Balance 480 / 480 1200 / 1200
Review of Systems
-
Respiratory: Denies Trouble Breathing
Cardiac: Denies Chest Pain
Abdomen/GI: Denies Abdominal Pain, Nausea or Vomiting
Neuro: Denies Dizzy
Physical Exam
-
General: No Apparent Distress
HEENT: Moist Mucous Membranes
Respiratory: Non Labored Respirations; Negative Accessory Resp Muscle Use
Cardiac: Regular Rhythm and Cardiovascular Insuff; Negative Tachycardic
GI: Soft and Nontender
Neuro: Awake, Alert and Oriented
Psych: Calm
[2024-08-28 10:39] VITALS: BP 118/71
[2024-08-28 12:01] LABS: Glucose - Point of Care 102 mg/dl (70-99)
[2024-08-28 14:13] VITALS: BP 110/61
--- NOTE | 2024-08-28 16:40 | CM ---
CM notified that Rx for cefdinir was not sent with discharge instructions to [facility]. Per facility, [facility] is used; pharmacy information entered into [id number] and [facility] notified of same. The unit will contact Dr. Ward
regarding need for Rx to be sent to [facility].
== END 2024-08-28 14:07 | disposition home or self-care (01) | DRG 698 ==
LOC: 3 WEST ACU 22:13
PROVIDERS: Emergency Medicine; Nurse Practitioner; ADMITTING PHYSICIAN Hospitalist; ATTENDING PHYSICIAN Internal Medicine; CONSULT PHYSICIAN Internal Medicine Cardiovascular Disease; CONSULT PHYSICIAN Internal Medicine Infectious Disease; CONSULT PHYSICIAN Specialist; EMERGENCY PHYSICIAN Emergency Medicine
DX: T83.592A Infection and inflammatory reaction due to indwelling ureteral stent, initial encounter (principal); G92.8 Other toxic encephalopathy; N39.0 Urinary tract infection, site not specified; N17.9 Acute kidney failure, unspecified; E23.0 Hypopituitarism; N20.2 Calculus of kidney with calculus of ureter; F31.30 Bipolar disorder, current episode depressed, mild or moderate severity, unspecified; E87.1 Hypo-osmolality and hyponatremia; G91.9 Hydrocephalus, unspecified; N28.89 Other specified disorders of kidney and ureter; Z87.442 Personal history of urinary calculi; E86.0 Dehydration; F41.9 Anxiety disorder, unspecified; I49.5 Sick sinus syndrome; I95.1 Orthostatic hypotension; E11.9 Type 2 diabetes mellitus without complications; G40.909 Epilepsy, unspecified, not intractable, without status epilepticus; E87.5 Hyperkalemia; B96.20 Unspecified Escherichia coli [E. coli] as the cause of diseases classified elsewhere; D53.9 Nutritional anemia, unspecified; E03.9 Hypothyroidism, unspecified; F79 Unspecified intellectual disabilities; I10 Essential (primary) hypertension; Z98.2 Presence of cerebrospinal fluid drainage device
CPT/HCPCS: 70450; 71046; 74176; 80048; 80053; 81003; 81015; 82607; 82746; 82805; 82962; 83036; 83605; 83735; 84100; 84443; 84484; 84703; 85025; 85027; 87040; 87070; 87077; 87086; 87147; 87149; 87186; 87205; 87502; 87811; 92523; 92610; 93005; 96361; 96374; 97116; 97161; 97166; 97530; 99285

== ENCOUNTER 2025-07-29 09:19 | Outpatient (REF) | payer MEDICARE, OTHER, SELFPAY | END 2025-07-29 23:59 | disposition home or self-care (01) | LOC: WOUND 09:19 | PROVIDERS: ATTENDING PHYSICIAN Registered Nurse; FAMILY PHYSICIAN Internal Medicine Geriatric Medicine | DX: L97.929 Non-pressure chronic ulcer of unspecified part of left lower leg with unspecified severity (principal); D63.8 Anemia in other chronic diseases classified elsewhere | CPT/HCPCS: 99213 ==